=== PATIENT | female | born 1995 | race Caucasian/White ===

== ENCOUNTER → 2017-01-12 | Outpatient (CLI) | payer BC ==
[2016-12-01 09:46] VITALS: BP 111/80
[~2017-01-12] MED LIST: ACET-704 PO; ASPI325T11 PO; CYCL10TA2 PO; HYDR-971 PO; ONDA4TAB10 PO; WARF1TAB PO; WARF7.5T PO
--- NOTE | 2017-01-12 15:48 | RAD ---
Indication right lower quadrant pain for 2 days. Upright and supine films of the abdomen were obtained. The lung bases appear clear. The abdominal gas pattern is normal. Umbilical ornament is noted. IUD is additionally noted. There is no free air IMPRESSION: No acute or significant finding seen on plain films of the abdomen
== END | disposition home or self-care (01) ==
LOC: DXRADRC 15:29
PROVIDERS: ATTEND Physician Assistant
DX: R10.31 Right lower quadrant pain (principal)
CPT/HCPCS: 74020

== ENCOUNTER 2017-02-10 19:57 | Emergency (ER) | payer BC ==
[~2017-02-10] VITALS: Ht 162.6 cm; Wt 95.7 kg
[2017-02-10] MEDS ORDERED: PREDNISONE 20 MG TABLET ONE (20:38)
[2017-02-10] MEDS ORDERED: PREDNISONE 10 MG TABLET ONE (20:41)
[2017-02-10] MEDS ORDERED: ALBUTEROL SULFATE 2.5 MG/0.5 ML NEBU. NEB ONE (21:00)
[2017-02-10] MEDS ORDERED: PREDNISONE 10 MG TABLET PO ONE (21:00)
--- NOTE | 2017-02-10 21:04 | PHYS DOC ---
Text Text Final impression prior to discharge his bronchitis during the patient is not short of breath patient has no leg pain at this time considered pulmonary plasma as cause of wheezing which would doubtful given her episodic nature of her symptoms. Likely associated with her smoking as well as her URI symptoms. We 'll treat with azithromycin, albuterol, prednisone and follow-up. General Chief Complaint: SHORTNESS OF BREATH Stated Complaint: DIFFICULTY BREATHING Time Seen by MD: 20:20 Source: patient Exam Limitations: no limitations Problems: History of Present Illness Initial Comments Patient is a pleasant 21-year-old female with a history of asthma not in any therapy to include no albuterol, no steroids, ipratropium who's had a 2 day history of increasing nonproductive cough, without fevers recent travel antimicrobials. 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 She is also a smoker who smokes half a pack a day. Timing/Duration: yesterday Severity/Quality: moderate, dry cough Prior Episodes/Possible Cause: occasional episodes Modifying Factors: improves with activity Associated Symptoms: cough, nasal congestion, sore throat, wheezing Allergies: Coded Allergies: No Known Drug Allergies (Unverified , 10/19/15) Past Medical History Medical History: asthma, bronchitis Surgical History: noncontributory, other Family History Significant Family History: other (history of DVT) Social History Smoker: less than 1 pack/day Alcohol: none Drugs: none Review of Systems Constitutional: chillsdenies fever EENTM: denies tearing, denies ear discharge, denies nose pain, nose congestion throat paindenies throat swelling Respiratory: coughdenies shortness of breath, denies stridor, wheezing Cardiovascular: no symptoms reported Gastrointestinal: no symptoms reported Genitourinary: no symptoms reported Musculoskeletal: no symptoms reported Skin: no symptoms reporteddenies rash Psychiatric/Neurological: no symptoms reported Hematologic/Lymphatic: no symptoms reported Immunological/Allergic: no symptoms reported All Other Systems: Reviewed and Negative Physical Exam General Appearance: WD/WN, no apparent distress Ears, Nose, Throat: normal ENT inspection, hearing grossly normal, nasal congestion, nasal drainage, pharyngeal erythema Neck: non-tender, full range of motion, supple, normal inspection Respiratory: no respiratory distress, no accessory muscle use, wheezing Cardiovascular: normal peripheral pulses, regular rate, rhythm Gastrointestinal: normal bowel sounds, non tender, soft Extremities: normal range of motion, non-tender, normal inspection Skin: normal color, warm/dry Lymphatic: no adenopathy Orders, Labs, Meds Patient is a pleasant 21-year-old female who is a smoker with a history of DVT presents with wheezing and productive cough for last several days. She admits she's been around sick contacts with similar symptoms she is minimally wheezing at this time or given a dose of albuterol as well as prednisone reevaluation. She will be evaluated for possible and then a chest x-ray be completed. Patient's strep test was negative patient's test is negative chest x-ray dated 02/10/2017 time 2036 negative for pulmonary infiltrates. His cardiac shadow is within normal limits mediastinum is within normal limits trachea is midline patient will be treated with a course of azithromycin treated as a bronchitis with albuterol as well as a short course of prednisone. Patient will be followed up with her primary care doctor for continued evaluation of her asthma will encourage her to quit smoking precautions given see discharge instructions. DARCI ALLEN MD Feb 10, 2017 21:04
[2017-02-10 21:20] LABS: U PREG PATIENT NEGATIVE (NEG)
[2017-02-10] MEDS ORDERED: ALBU8.5H3 INH (21:33)
[2017-02-10] MEDS ORDERED: AZIT250T6 PO (21:33)
[2017-02-10] MEDS ORDERED: PRED50TA PO (21:33)
[2017-02-10 22:10] VITALS: BP 118/69
[2017-02-10] MEDS ORDERED: ALBUTEROL SULFATE 8GM INHALER. INH ONE (22:15)
--- NOTE | 2017-02-11 07:50 | RAD ---
Exam: PA and lateral chest radiograph History: Cough, asthma. Comparison: 06/24/2015. Findings: Cardiomediastinal silhouette is within normal limits for size. Bilateral lung campo are free of focal infiltrate. No pleural effusion is seen. Impression: No acute cardiopulmonary process.
== END 2017-02-10 22:14 | disposition home or self-care (01) ==
LOC: ER 19:57
DX: J40 Bronchitis, not specified as acute or chronic (principal); F17.210 Nicotine dependence, cigarettes, uncomplicated; J45.909 Unspecified asthma, uncomplicated
CPT/HCPCS: 71020; 81025; 87070; 87880; 94640; 99285; J7512; J7611; J7613

== ENCOUNTER 2017-04-28 12:25 | Emergency (ER) | payer BC ==
[~2017-04-28] VITALS: Ht 162.6 cm; Wt 96.0 kg
[~2017-04-28 12:25] MED LIST changes: +ALBU8.5H8 INH; +AZIT250T6 PO; +CYCL-331 PO; -CYCL10TA2 PO; +PRED50TA PO; -WARF1TAB PO; +WARF1TAB74 PO; -WARF7.5T PO; +WARF7.5T48 PO
--- NOTE | 2017-04-28 13:38 | RAD ---
Pelvis with left hip, 3 views, 04/28/2017: History: Fall, left hip pain No fracture or dislocation is identified. The hip joints are well-maintained. An IUD is projected over the mid pelvis. IMPRESSION: No acute pelvic or left hip abnormality is detected.
[2017-04-28] MEDS ORDERED: IBUP600T16 PO (13:42)
[2017-04-28] MEDS ORDERED: CYCL-331 PO (13:42)
--- NOTE | 2017-04-28 13:42 | PHYS DOC ---
Past History Past Medical History: Other Past Surgical History: No Surgical History Smoking: Less than 1pk/day Alcohol Use: Occasionally Drug Use: None Adult General Chief Complaint Chief Complaint: LOWER EXT PAIN HPI HPI Patient is a 21 year old female who presents with complaint of left hip and thigh pain. Patient states that she suffered a fall down 2-3 steps after the patient accidentally slipped while walking down the steps. Patient states that she tried to catch the rail with her hand. This caused the patient to spin around and fall onto her left hip and thigh. Patient states that she is currently having 10 out of 10 pain in the affected extremity. Patient states the pain radiates along the lateral aspect of her left leg. The patient was able to ambulate immediately after the fall and has been walking but has been having significant pain that is focused in the left hip. Patient states that the pain worsens with range of motion. Patient has not taken any medications to help with symptoms. Patient did not hit her head or lose consciousness and denies any other injuries. Patient states that she has had history of DVT and was previously on Coumadin but has been off of this medication for several months. Review of Systems Review of Systems Constitutional: Denies fever or chills [] Musculoskeletal: Left hip and thigh pain [] Integument: Denies rash or skin lesions [] Neurologic: Denies headache, focal weakness or sensory changes [] Current Medications Current Medications Current Medications Medications (Trade) Dose Ordered Sig/[facility] Start Time Stop Time Status Last Admin Dose Admin Ibuprofen (Motrin) 600 mg 1X ONCE 04/28/17 14:00 04/28/17 14:01 DC 04/28/17 13:55 600 MG Allergies Allergies Allergies Coded Allergies Type Severity Reaction Last Updated Verified No Known Drug Allergies 10/19/15 No Physical Exam Physical Exam Constitutional: Alert, afebrile, appears in mild to moderate discomfort. [] HENT: Normocephalic, atraumatic, bilateral external ears normal, oropharynx moist, no oral exudates, nose normal. [] Skin: Warm, dry, no erythema, no rash. [] Back: No tenderness, no CVA tenderness. [] Extremities: Left greater trochanteric tenderness to palpation, tenderness to palpation along left IT band, left knee with no palpable crepitus with passive range of motion, negative Na test, neurovascularly intact distal to site of injury. [] Neurologic: Alert and oriented X 3, normal motor function, normal sensory function, no focal deficits noted. [] Current Patient Data Vital Signs Vital Signs Date Time Temp Pulse Resp B/P (MAP) Pulse Ox O2 Delivery O2 Flow Rate FiO2 04/28/17 12:33 97.7 115 20 98 Room Air EKG EKG Not performed [] Radiology/Procedures Radiology/[place] [address] IMAGING REPORT Signed PATIENT: MORENITA PARSON ACCOUNT: [id number] : 1995 LOCATION: ER AGE: 21 SEX: F EXAM STATUS: REG ER ORD. PHYSICIAN: AILYN GUTIERREZ MD REASON: FALL PROCEDURE: HIP LEFT 2V WITH PELVIS Pelvis with left hip, 3 views, 04/28/2017: History: Fall, left hip pain No fracture or dislocation is identified. The hip joints are well-maintained. An IUD is projected over the mid pelvis. IMPRESSION: No acute pelvic or left hip abnormality is detected. DICTATED AND SIGNED BY: ISRRAEL HARTMAN MD DATE: 04/28/17 1334 CC: AILYN GUTIERREZ MD; JOHN PAUL BALL ~ [] Course & Med Decision Making Course & Med Decision Making Pertinent Labs and Imaging studies reviewed. (See chart for details) X-rays were negative for fracture. Patient's symptoms appear consistent with left hip and thigh contusion. Patient started on ibuprofen in the emergency department. The patient will continue on cyclobenzaprine and ibuprofen for continued treatment with recommended follow-up in 3 days with patient's primary physician. Advised return emergency department for any worsening symptoms. Patient voiced understanding and in agreement with treatment plan. Dragon Disclaimer Dragon Disclaimer This chart was dictated in whole or in part using Voice Recognition software in a busy, high-work load, and often noisy Emergency Department environment. It may contain unintended and wholly unrecognized errors or omissions. Departure Departure: Impression: Primary Impression: Contusion of left hip and thigh Disposition: HOME, SELF-CARE Condition: IMPROVED Referrals: JOHN PAUL BALL (PCP) Patient Instructions: Contusion Additional Instructions: Follow-up with your primary doctor in the next 3 days for reevaluation and to discuss possible need for restarting your Coumadin medication. Return to the emergency department for any worsening symptoms. Scripts Ibuprofen (IBUPROFEN) 600 Mg Tablet 600 MG PO Q6HRS, #30 TAB Prov: AILYN GUTIERREZ MD 04/28/17 Cyclobenzaprine Hcl (CYCLOBENZAPRINE HCL) 10 Mg Tablet 1 TAB PO QHS, #15 TAB Prov: AILYN GUTIERREZ MD 04/28/17 Problem Qualifiers Primary Impression: Contusion of left hip and thigh Encounter type: initial encounter Qualified Codes: S70.02XA - Contusion of left hip, initial encounter; S70.12XA - Contusion of left thigh, initial encounter AILYN GUTIERREZ MD Apr 28, 2017 13:42
[2017-04-28 14:00] VITALS: BP 127/73
[2017-04-28] MEDS ORDERED: IBUPROFEN 600 MG TABLET. PO ONE (14:00)
== END 2017-04-28 13:58 | disposition home or self-care (01) ==
LOC: ER 12:25
DX: S70.02XA Contusion of left hip, initial encounter (principal); S70.12XA Contusion of left thigh, initial encounter; F17.200 Nicotine dependence, unspecified, uncomplicated; W01.10XA Fall on same level from slipping, tripping and stumbling with subsequent striking against unspecified object, initial encounter; Y93.89 Activity, other specified; Y92.89 Other specified places as the place of occurrence of the external cause; Y99.8 Other external cause status
CPT/HCPCS: 73502; 99284

== ENCOUNTER 2017-05-26 12:58 | Emergency (ER) | payer BC ==
[~2017-05-26] VITALS: Ht 162.6 cm; Wt 96.0 kg
[~2017-05-26 12:58] MED LIST changes: +IBUP600T16 PO
--- NOTE | 2017-05-26 14:43 | RAD ---
Right lower extremity venous duplex study 05/26/2017 Clinical History: Right leg pain and swelling.. Technique: Using a combination of real time ultrasound imaging and color-flow and pulse Doppler imaging techniques along with graded compression and augmentation, duplex evaluation of the deep venous system of the right lower extremity was performed. Multiple images were obtained. Findings: There is no sonographic evidence of deep venous thrombosis involving the visualized deep venous structures of right lower extremity. Impression: Negative study.
[2017-05-26] MEDS ORDERED: ACET325T9 PO (14:47)
--- NOTE | 2017-05-26 14:47 | PHYS DOC ---
Past History Past Medical History: Other Past Surgical History: No Surgical History Smoking: Less than 1pk/day Alcohol Use: Occasionally Drug Use: None Adult General Chief Complaint Chief Complaint: LOWER EXT PAIN HPI HPI 21-year-old female presenting to the emergency department today with pain in her right lower extremity. She reports having history of DVTs and was sent here to be evaluated to make sure she doesn't of blood clot. The pain is in her right calf. It is nonradiating moderate intermittent and without alleviating factors. She denies unilateral leg swelling and redness of the leg. Review of systems is negative for chest pain shortness of breath abdominal pain nausea vomiting. All other review of systems is negative unless otherwise noted in history of present illness. ED course: 21-year-old female presenting to the emergency department today to be evaluated for right calf pain concern for possible DVT. Ultrasound obtained which was negative. The patient was subsequent discharged home to follow-up with her doctor. The patient was then discharged home in stable condition to follow up with their primary care physician over the next 2-3 days. They were to return if their symptoms worsened or if they were concerned for any reason. [id number] discharge instructions and return precautions were given. Patient' s questions were answered to their satisfaction. Patient is comfortable plan. Review of Systems Review of Systems SEE ABOVE Allergies Allergies Allergies Coded Allergies Type Severity Reaction Last Updated Verified No Known Drug Allergies 10/19/15 No Physical Exam Physical Exam Constitutional: Well developed, well nourished, no acute distress, non-toxic appearance. [] HENT: Normocephalic, atraumatic, bilateral external ears normal, oropharynx moist, no oral exudates, nose normal. [] Eyes: PERRLA, EOMI, conjunctiva normal, no discharge. [] Neck: Normal range of motion, no tenderness, supple, no stridor. [] Cardiovascular:Heart rate regular rhythm, no murmur [] Lungs & Thorax: Bilateral breath sounds clear to auscultation [] Abdomen: Bowel sounds normal, soft, no tenderness, no masses, no pulsatile masses. [] Skin: Warm, dry, no erythema, no rash. [] Back: No tenderness, no CVA tenderness. [] Extremities: Patient has mild tenderness to palpation along the posterior calf muscle. No swelling. No erythema. 2 second cap refill distally with palpable pulse. Neurovascularly intact. No evidence of trauma. The remainder of the extremities otherwise are unremarkable. Neurologic: Alert and oriented X 3, normal motor function, normal sensory function, no focal deficits noted. [] Psychologic: Affect normal, judgement normal, mood normal. [] Current Patient Data Vital Signs Vital Signs Date Time Temp Pulse Resp B/P (MAP) Pulse Ox O2 Delivery O2 Flow Rate FiO2 05/26/17 13:08 97.4 92 20 96 Room Air EKG EKG [] Radiology/Procedures Radiology/Procedures [] Course & Med Decision Making Course & Med Decision Making Pertinent Labs and Imaging studies reviewed. (See chart for details) [] Dragon Disclaimer Dragon Disclaimer This chart was dictated in whole or in part using Voice Recognition software in a busy, high-work load, and often noisy Emergency Department environment. It may contain unintended and wholly unrecognized errors or omissions. Departure Departure: Impression: Primary Impression: Right leg pain Disposition: HOME, SELF-CARE Condition: STABLE Referrals: JOHN PAUL BALL (PCP) Patient Instructions: Musculoskeletal Pain Additional Instructions: Thank you for allowing us to participate in your care today. No DVT was found today on your ultrasound. Take ibuprofen or Tylenol for pain. Followup with your primary care physician in 3 days if your symptoms do not improve. Call your Primary Doctor tomorrow and inform them of your visit today. If you do not have a primary care provider you can ask for a list of our primary care providers. Return to the emergency department you have any new or concerning findings. This should be evaluated by the primary care physician and any necessary consulting services for continued management within a few days after discharge. Return to emergency room if you have any new or concerning symptoms including but not limited to fever, chills, nausea, vomiting, intractable pain, any new rashes, chest pain, shortness of air, uncontrolled bleeding, difficulty breathing, and/or vision loss. Scripts Acetaminophen (TYLENOL) 325 Mg Tablet 1 TAB PO PRN Q4HRS, #10 TAB Prov: WILLIAM STEARNS MD 05/26/17 WILLIAM STEARNS MD May 26, 2017 14:47
[2017-05-26 15:06] VITALS: BP 127/63
== END 2017-05-26 15:06 | disposition home or self-care (01) ==
LOC: ER 12:58
DX: M79.661 Pain in right lower leg (principal); F17.200 Nicotine dependence, unspecified, uncomplicated
CPT/HCPCS: 93971; 99284-25

== ENCOUNTER → 2017-07-17 | Emergency (ER) | payer BC ==
[~2017-07-17] VITALS: Ht 162.6 cm; Wt 95.3 kg
[~2017-07-17] MED LIST changes: +0.9 % SODIUM CHLORIDE 10 ML DISP.SYRIN. IV PRN; +ACET325T9 PO; +HYDR-2758 PO; +IOHEXOL 300 MG/ML 75 ML VIAL. IV ONE; +IV NORMAL SALINE 1,000ML 1,000 ML IV SCH; +KETOROLAC 30 MG/ML VIAL. IV ONE; +NAPR275T59 PO
--- NOTE | 2017-07-17 11:56 | PHYS DOC ---
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 Patient's been on and off Coumadin in the past and now just recently changed to XALETO but during this interval transition she developed left-sided chest pain constant with left arm pain. The left arm pain is what's causing most of her consternation as she's had this pain for a week it is worse with range of motion movements specifically on the inside of the bicep and elbow. She was seen by her primary care doctor who told her it is likely musculoskeletal and prescribed a muscle relaxant and Motrin. She is not improved in her symptoms. After talking to her data center technician earlier this morning he advised her to return to the emergency department immediately for evaluation. Patient denies any numbness and tingling to the hand at this point but has had some in the past few days. There is intermittent called waxing and waning. She denies any neck pain and she has left shoulder pain with pain radiation down to the inner portion of the arm. She denies any direct trauma, denies any night sweats, weight loss, shortness of breath at this time. The chest discomfort is constant in the left chest with no radiation. She denies any nausea, vomiting, diarrhea, night sweats, fever, URI symptoms. Patient is taking her medications routinely and is presently on Mirena for control. Differential diagnosis for chest pain: Pericarditis, myocarditis, endocarditis, pneumothorax, pneumonia, aortic dissection, esophageal spasm, esophagitis, peptic ulcer disease, acute coronary syndrome, mediastinitis, Boerhaave syndrome , musculoskeletal chest wall pain, costochondritis, intercostal strain, rib fracture, pulmonary contusion, pneumonitis, pleural effusion, pericardial effusion, pericardial tamponode, and pleurisy. Considered upon arrival in like main concern is likely pulmonary embolism from the hyper coagulable states she was in transiently while changing between medications. Review of Systems Review of Systems Constitutional: Denies fever or chills [] Eyes: Denies change in visual acuity, redness, or eye pain [] HENT: Denies nasal congestion or sore throat [] Respiratory: Denies cough or shortness of breath [] Cardiovascular: No additional information not addressed in HPI [] GI: Denies abdominal pain, nausea, vomiting, bloody stools or diarrhea [] : Denies dysuria or hematuria [] Musculoskeletal: Denies back pain or her main complaint is left shoulder pain left chest pain and left arm pain. Described as a dull ache worsened by certain movements and positions Integument: Denies rash or skin lesions [] Neurologic: Denies headache, focal weakness or sensory changes [] Endocrine: Denies polyuria or polydipsia [] Allergies Allergies Allergies Coded Allergies Type Severity Reaction Last Updated Verified No Known Drug Allergies 10/19/15 No Physical Exam Physical Exam Constitutional: Well developed, well nourished, no acute distress, non-toxic appearance. [] HENT: Normocephalic, atraumatic, bilateral external ears normal, oropharynx moist, no oral exudates, nose normal. [] Eyes: PERRLA, EOMI, conjunctiva normal, no discharge. [] Neck: Normal range of motion, no tenderness, supple, no stridor. [] Cardiovascular:Heart rate regular rhythm, no murmur [] Lungs & Thorax: Bilateral breath sounds clear to auscultation [] Skin: Warm, dry, no erythema, no rash. [] Back: Patient is tenderness to palpation along the superior portion of the scapula and a sits muscles on the left. There is also marked tenderness to palpation on the inside of the bicep with no obvious changes in skin color no loss of sensation to light touch. Patient has normal capillary refill brisk +2 normal peripheral pulses at the ulnar and radial artery with no evidence of vascular congestion. Patient has no rash, no loss of strength within the physical muscles of the hand she has negative Spurling's test no tenderness to palpation along the left side of the neck or midline cervical spine. Extremities: No tenderness, no cyanosis, no clubbing, ROM intact, no edema. [] Neurologic: Alert and oriented X 3, normal motor function, normal sensory function, no focal deficits noted. [] Psychologic: Affect normal, judgement normal, mood normal. [] Current Patient Data Lab Results Laboratory Tests Test 07/17/17 12:46 POC Urine HCG, Qualitative hcg negative (Negative) EKG EKG [] Radiology/Procedures Radiology/Procedures [] [address] [address] IMAGING REPORT Signed PATIENT: MORENITA PARSON ACCOUNT: [id number] : 1995 LOCATION: ER AGE: 22 SEX: F EXAM STATUS: REG ER ORD. PHYSICIAN: DARCI ALLEN MD REASON: chest pain off of coumadin PROCEDURE: CT ANGIOGRAPHY CHEST One or more of the following individualized dose reduction techniques were utilized for this examination: 1. Automated exposure control 2. Adjustment of the mA and/or kV according to patient size 3. Use of iterative reconstruction technique CT arteriogram of the chest. History: Chest pain, off Coumadin, history lower extremity DVT CT arteriogram of the chest was done using 75 mL Omnipaque 300 contrast. Sagittal and coronal MIP images were reconstructed. Thyroid is homogeneous. There is no mediastinal adenopathy or pleural effusion. Visualized portions of liver and spleen are normal. Adrenal glands are normal. Thoracic spine is in normal alignment. Study is negative for evidence of a pulmonary embolus. There is mild dependent atelectasis in the lungs without other infiltrates. Impression: 1. Mild atelectasis. 2. Negative for a pulmonary embolus. 3. No other infiltrates. DICTATED AND SIGNED BY: KATHRINE MOBLEY MD DATE: 07/17/17 1320 Course & Med Decision Making Course & Med Decision Making Pertinent Labs and Imaging studies reviewed. (See chart for details) patient presents with chest painDifferential diagnosis for chest pain: Pericarditis, myocarditis, endocarditis, pneumothorax, pneumonia, aortic dissection, esophageal spasm, esophagitis, peptic ulcer disease, acute coronary syndrome, mediastinitis, Boerhaave syndrome, musculoskeletal chest wall pain, costochondritis, intercostal strain, rib fracture, pulmonary contusion, pneumonitis, pleural effusion, pericardial effusion, pericardial tamponode, and pleurisy. Was considered upon arrival but given her prior history of DVT requiring anticoagulant therapy with Coumadin and now xaleto my concern is that during the transition period between the 2 medications patient is developed a clot within her lungs. Although she demonstrates no obvious signs of vascular, to the upper extremity she's had no risk factors for DVT in left upper extremity like IV line placement, localized trauma, PICC line placement, or limitation patient has brisk capillary refills as well as normal sensation to light touch and proprioception. Patient has no obvious provocative signs of cervical spine impingement or radiculopathy Patient's CT scan returned at approximately 1:30 PM demonstrates no signs of atelectasis, pulmonary infiltrate or PE. Patient's laboratory work is negative for signs of infection with a normal CBC normal white blood cell count normal pleuritic count. Patient seated CMP is normal patient's troponin is normal patient's BNP is normal sensation to EKG is unremarkable read by me time on EKG was 11:59 AM 07/17/2017 demonstrates heart rate of 76 with a pediatric QRS normal sinus rhythm with marked sinus arrhythmia given. UT interval is 118 which is normal patient's QRS width is 70 which is normal. QT C is 418 which is normal. Patient not likely have a cardiac cause of her arm pain and sharp pain and chest pain. This is likely musculoskeletal. Patient's History: Provided gets her a low risk 0 point on the heart score criteria. This allows me to send her home safely with close PCP follow-up. She and I discussed differential diagnosis and follow-up precautions as well as instructions when to return. Highly suspicious 2 points moderately suspicious 1. slightly suspicious 0 point EKG: ST segment depression 2. nonspecific repolarization disturbance 1. normal 0 point Age: Greater than 65 2 points, 65-45 1., less than 45 years old 0 points Risk factors:> 3 risk factors 2 points, 1-2 risk factors one point, no risk factors 0 point Troponin: > 2 times normal 2 points, 1-2 times normal 1., normal limits 0 point Total score: Score % pts MACE/n MACE Policy 0-3 32% 1.9% 0.05% Discharge 4-6 51% 413/3136 13% 1.3% Observation Risk management 7-10 17% 518/1045 50% 2.8% Observation Treatment, CAG [] Dragon Disclaimer Dragon Disclaimer This chart was dictated in whole or in part using Voice Recognition software in a busy, high-work load, and often noisy Emergency Department environment. It may contain unintended and wholly unrecognized errors or omissions. Departure Departure: Impression: Primary Impression: Chest pain made worse by breathing Additional Impression: Myalgia Disposition: HOME, SELF-CARE Condition: STABLE Referrals: JOHN PAUL BALL (PCP) Patient Instructions: Chest Pain (Nonspecific), Chest Wall Pain, Muscle Cramps Additional Instructions: My discharge plan Follow up: In addition patient is asked to followup with their primary doctor, within a week for followup examination and to address patient's ongoing medical conditions. Patient is advised that in the Emergency Department primary complaints are addressed and only in light of known signs and symptoms. Patient should return immediately to the emergency department if new signs and symptoms develop or patient's condition worsens in any way. At time of discharge patient was in stable condition and had verbalized understanding of the discharge instructions. Scripts Naproxen Sodium (NAPROXEN SODIUM) 275 Mg Tablet 275 MG PO BID for 7 Days, #14 TAB Prov: DARCI ALLEN MD 07/17/17 Hydrocodone Bit/Acetaminophen (HYDROCODONE-APAP 5-325 ) 1 Each Tablet 1 TAB PO PRN Q6HRS Y for PAIN for 5 Days, #10 TAB 0 Refills Prov: DARCI ALLEN MD 07/17/17 Problem Qualifiers DARCI ALLEN MD Jul 17, 2017 11:56
[2017-07-17 12:49] LABS: BASO # 0.1 x10^3/uL (0.0-0.2); BASO % 1 % (0-3); EOS # 0.2 x10^3/uL (0.0-0.7); EOS % 2 % (0-3); HEMATOCRIT 46.2 % (36.0-47.0); HEMOGLOBIN 16.4 g/dL (12.0-15.5); LYMPH # 1.9 x10^3/uL (1.0-4.8); LYMPH % 19 % (24-48); MEAN CORPUSCULAR HEMOGLOBIN 32 pg (25-35); MEAN CORPUSCULAR HGB CONC 36 g/dL (31-37); MEAN CORPUSCULAR VOLUME 90 fL (79-100); MONO # 0.7 x10^3/uL (0.0-1.1); MONO % 7 % (0-9); NEUT % 71 % (31-73); PLATELET COUNT 244 x10^3/uL (140-400); RED BLOOD COUNT 5.13 x10^6/uL (3.50-5.40); RED CELL DISTRIBUTION WIDTH 12.8 % (11.5-14.5); WHITE BLOOD COUNT 9.8 x10^3/uL (4.0-11.0)
[2017-07-17 12:58] LABS: BILIRUBIN,URINE NEG (NEG); CLARITY,URINE HAZY; COLOR,URINE YELLOW; GLUCOSE,URINE NEG (NEG)
[2017-07-17 12:59] LABS: BACTERIA,URINE FEW /HPF (0-FEW); NITRITE,URINE NEG (NEG); SQUAMOUS EPITHELIAL CELL,UR MOD /LPF; UROBILINOGEN,URINE 0.2 mg/dL (0.2 mg/dL)
[2017-07-17 13:08] LABS: ALBUMIN 3.9 g/dL (3.4-5.0); ALBUMIN/GLOBULIN RATIO 1.1 (1.0-1.7); ALK PHOS 110 U/L (46-116); ALT (SGPT) 30 U/L (14-59); ANION GAP 6 (6-14); AST (SGOT) 17 U/L (15-37); BLOOD UREA NITROGEN 9 mg/dL (7-20); BUN/CREATININE RATIO 10 (6-20); CALCIUM 9.7 mg/dL (8.5-10.1); CARBON DIOXIDE 29 mmol/L (21-32); CHLORIDE 107 mmol/L (98-107); CREATINE KINASE 70 U/L (26-192); CREATININE 0.9 mg/dL (0.6-1.0); GFR 78.3; GLUCOSE 96 mg/dL (70-99); LIPASE 111 U/L (73-393); MAGNESIUM 1.9 mg/dL (1.8-2.4); POTASSIUM 3.6 mmol/L (3.5-5.1); SODIUM 142 mmol/L (136-145); TOTAL BILIRUBIN 0.3 mg/dL (0.2-1.0); TOTAL PROTEIN 7.6 g/dL (6.4-8.2)
--- NOTE | 2017-07-17 13:32 | RAD ---
One or more of the following individualized dose reduction techniques were utilized for this examination: 1. Automated exposure control 2. Adjustment of the mA and/or kV according to patient size 3. Use of iterative reconstruction technique CT arteriogram of the chest. History: Chest pain, off Coumadin, history lower extremity DVT CT arteriogram of the chest was done using 75 mL Omnipaque 300 contrast. Sagittal and coronal MIP images were reconstructed. Thyroid is homogeneous. There is no mediastinal adenopathy or pleural effusion. Visualized portions of liver and spleen are normal. Adrenal glands are normal. Thoracic spine is in normal alignment. Study is negative for evidence of a pulmonary embolus. There is mild dependent atelectasis in the lungs without other infiltrates. Impression: 1. Mild atelectasis. 2. Negative for a pulmonary embolus. 3. No other infiltrates.
[2017-07-17 13:55] VITALS: BP 118/74
--- NOTE | 2017-07-17 15:23 | EKG ---
[address] [address] Test Date: 2017-07-17 Test Time: 11:59:04 Pat Name: MORENITA PARSON Department: Room: Gender: F Applications System Analyst: : 1995 Requested By: DARCI ALLEN Order Number: [id number] Reading MD: Measurements Intervals [place] Rate: 76 P: 38 [place]: 118 QRS: 0 QRSD: 70 T: 0 QT: 372 QTc: 418 Interpretive Statements SINUS ARRHYTHMIA LEFTWARD AXIS NO SPECIFIC ECG ABNORMALITIES RI6.01 No previous ECG available for comparison
== END ==
LOC: ER 11:36
DX: M79.1 Myalgia (principal); R07.1 Chest pain on breathing; M79.602 Pain in left arm; F17.210 Nicotine dependence, cigarettes, uncomplicated; Z86.718 Personal history of other venous thrombosis and embolism
CPT/HCPCS: 36415; 71275; 80053; 81001; 81025; 82553; 83690; 83735; 83880; 84443; 85025; 85610; 85730; 87086; 93005; 96361; 96374; 99285; J1885; Q9967; J7030

== ENCOUNTER 2018-01-09 20:43 | Emergency (ER) | payer BC ==
[~2018-01-09] VITALS: Ht 162.6 cm; Wt 96.0 kg
[~2018-01-09 20:43] MED LIST changes: -0.9 % SODIUM CHLORIDE 10 ML DISP.SYRIN. IV PRN; -IOHEXOL 300 MG/ML 75 ML VIAL. IV ONE; -IV NORMAL SALINE 1,000ML 1,000 ML IV SCH; -KETOROLAC 30 MG/ML VIAL. IV ONE
--- NOTE | 2018-01-09 20:45 | ED.ADGEN ---
Past History Past Medical History: Other Past Surgical History: Other Smoking: Less than 1pk/day Alcohol Use: Occasionally Drug Use: None Adult General Chief Complaint Chief Complaint " I got a really bad sore throat and some fever and chills...can't hardly swallow..." HPI HPI Patient is a 22 year old female who presents with above hx and complaints of fever, chills and pharyngitis. Patient does work in a [employer]. No recent travel. No history immunosuppression. Normally healthy. Up-to-date with vaccinations. Normally follows with Dr. Jhaveri Review of Systems Review of Systems Constitutional: History fever or chills [] Eyes: Denies change in visual acuity, redness, or eye pain [] HENT: History of sore throat [] Respiratory: History of a nonproductive cough Cardiovascular: No additional information not addressed in HPI [] GI: Denies abdominal pain, nausea, vomiting, bloody stools or diarrhea [] : Denies dysuria or hematuria [] Musculoskeletal: Denies back pain or joint pain [] Integument: Denies rash or skin lesions [] Neurologic: Denies headache, focal weakness or sensory changes [] Endocrine: Denies polyuria or polydipsia [] All other systems were reviewed and found to be within normal limits, except as documented in this note. Family History Family History Noncontributory Current Medications Current Medications Current Medications Medications (Trade) Dose Ordered Sig/Shawn Start Time Stop Time Status Last Admin Dose Admin Prednisone (Prednisone) 60 mg 1X ONCE 01/09/18 21:15 01/09/18 21:16 DC 01/09/18 21:21 60 MG Allergies Allergies Allergies Coded Allergies Type Severity Reaction Last Updated Verified No Known Drug Allergies 07/17/17 No Physical Exam Physical Exam Constitutional: Well developed, well nourished, moderately acute distress, non- toxic appearance. [] HENT: Normocephalic, atraumatic, bilateral external ears normal, oropharynx moist, injected pharynx, no oral exudates, nose normal. [] Eyes: PERRLA, EOMI, conjunctiva normal, no discharge. [] Neck: Normal range of motion, no tenderness, supple, no stridor. [] Cardiovascular:Heart rate regular rhythm, no murmur [] Lungs & Thorax: Bilateral breath sounds clear to auscultation [] Abdomen: Bowel sounds normal, soft, no tenderness, no masses, no pulsatile masses. [] Skin: Warm, dry, no erythema, no rash. [] Back: No tenderness, no CVA tenderness. [] Extremities: No tenderness, no cyanosis, no clubbing, ROM intact, no edema. [] Neurologic: Alert and oriented X 3, normal motor function, normal sensory function, no focal deficits noted. [] Psychologic: Affect anxious, judgement normal, mood normal. [] Current Patient Data Vital Signs Vital Signs Date Time Temp Pulse Resp B/P (MAP) Pulse Ox O2 Delivery O2 Flow Rate FiO2 01/09/18 21:22 99.0 99 18 98 Room Air Lab Results Laboratory Tests Test 01/09/18 21:22 Influenza Type A (Rapid) Negative (NEGATIVE) Influenza Type B (Rapid) Negative (NEGATIVE) Group A Streptococcus Rapid Negative (NEGATIVE) EKG EKG [] Radiology/Procedures Radiology/Procedures [] Course & Med Decision Making Course & Med Decision Making Pertinent Labs and Imaging studies reviewed. (See chart for details).. No work in [employer] until afebrile. Tylenol and ibuprofen for fever and discomfort. Benadryl may be helpful. Gargle with Listerine 4 times a day. Follow -up primary care. Return if any concerns. [] Final Impression Final Impression 1. Pharyngitis[] 2. Viral syndrome Problems: Dragon Disclaimer Dragon Disclaimer This electronic medical record was generated, in whole or in part, using a voice recognition dictation system. DARYL OWENS MD Jan 09, 2018 20:45
[2018-01-09] MEDS ORDERED: HYDR-79 PO (20:58)
[2018-01-09] MEDS ORDERED: predniSONE 20 MG TABLET PO ONE (21:15)
[2018-01-09 21:22] VITALS: BP 127/78
[2018-01-09 21:57] LABS: INFLUENZA A PATIENT NEGATIVE (NEGATIVE); INFLUENZA B PATIENT NEGATIVE (NEGATIVE)
== END 2018-01-09 22:15 | disposition home or self-care (01) ==
LOC: ER 20:43
DX: B34.9 Viral infection, unspecified (principal); F17.200 Nicotine dependence, unspecified, uncomplicated
CPT/HCPCS: 87070; 87804; 87880; 99284; J7512

== ENCOUNTER → 2018-01-25 | Outpatient (CLI) | payer BC ==
[2018-01-09 21:22] VITALS: BP 127/78
[~2018-01-25] MED LIST changes: +HYDR-79 PO
--- NOTE | 2018-01-25 12:28 | RAD ---
Right knee, 3 views, 01/25/2018: History: Knee pain Comparison is made to a study from 05/06/2011. There is deformity of the proximal tibia compatible with previous surgery. The previously seen 2 tibial screws have been removed. No acute fracture or dislocation is identified. The knee joint space is well maintained. No significant arthritic change is evident. IMPRESSION: 1. Postsurgical deformity of the proximal tibia. 2. No acute bony abnormality is detected.
== END | disposition home or self-care (01) ==
LOC: PMG 11:21
PROVIDERS: ATTEND Physician Assistant
DX: M21.861 Other specified acquired deformities of right lower leg (principal)
CPT/HCPCS: 73562

== ENCOUNTER 2018-02-10 13:15 | Emergency (ER) | payer BC ==
[~2018-02-10] VITALS: Ht 162.6 cm; Wt 86.4 kg
--- NOTE | 2018-02-10 15:26 | RAD ---
PQRS Compliance Statement: One or more of the following individualized dose reduction techniques were utilized for this examination: 1. Automated exposure control 2. Adjustment of the mA and/or kV according to patient size 3. Use of iterative reconstruction technique CT LOWER EXTREMITY WO RIGHT Clinical Indication: severe right hip pain, nki, necrosis? Comparison: AP pelvis and left hip radiographs April 28, 2017. CT abdomen and pelvis with contrast, October 19, 2015. Technique: Helical CT imaging of the right hip is performed without IV contrast. Findings: No acute fracture or dislocation of the right hip. No deformity of the right femoral head. No joint space narrowing. No acute pelvic bone abnormality. Visualized appendix is normal. IUD in the uterus. Question small right ovary functional cyst. Urinary bladder is normal. No pelvic free fluid. No hip joint effusion. No abnormality of the muscle. IMPRESSION: No acute bone abnormality. Electronically signed by: Dustin Dunne MD (02/10/2018 3:23 PM) [id number]
--- NOTE | 2018-02-10 16:36 | RAD ---
Right lower extremity venous Doppler ultrasound History: rt leg pain hx of DVT in rt leg 2014 pt is on blood thinners and states she will be on it the rest of her life pt started having clot in her leg at 16 Comparison: None. Procedure: Color flow Doppler, Doppler spectral analysis, and 2D images are obtained with and without compression in the area of the common femoral vein, superficial femoral vein - femoral vein junction, main femoral vein (superficial femoral vein) and popliteal vein. Veins of the proximal calf are also imaged. Findings: There is normal color flow, augmentation, and compressibility of all visualized vein segments. No evidence of deep venous thrombus is present. IMPRESSION: No evidence of right lower extremity deep venous thrombosis. Electronically signed by: Dustin Dunne MD (02/10/2018 4:33 PM) [id number]
--- NOTE | 2018-02-10 16:59 | PHYS DOC ---
Past History Past Medical History: DVT, Other Past Surgical History: Other Smoking: Less than 1pk/day Alcohol Use: Occasionally Drug Use: None Adult General Chief Complaint Chief Complaint: LOWER EXTREMITY SWELLING HPI HPI Patient is a 22 year old F who presents with right hip and thigh pain over the past 2 days. Marysol does have a history of DVTs was currently Xarelto. She was advised come to the emergency room to have further evaluation for a clot. She has no other associated symptoms. She has no other exacerbating or relieving factors. Review of Systems Review of Systems Constitutional: Denies fever or chills [] Eyes: Denies change in visual acuity, redness, or eye pain [] HENT: Denies nasal congestion or sore throat [] Respiratory: Denies cough or shortness of breath [] Cardiovascular: No additional information not addressed in HPI [] GI: Denies abdominal pain, nausea, vomiting, bloody stools or diarrhea [] : Denies dysuria or hematuria [] Musculoskeletal: Denies back pain Integument: Denies rash or skin lesions [] Neurologic: Denies headache, focal weakness or sensory changes [] Endocrine: Denies polyuria or polydipsia [] All other systems were reviewed and found to be within normal limits, except as documented in this note. Family History Family History No pertinent family medical history was reported Current Medications Current Medications Current medications reviewed Allergies Allergies Allergies Coded Allergies Type Severity Reaction Last Updated Verified No Known Drug Allergies 07/17/17 No Physical Exam Physical Exam Constitutional: Well developed, well nourished, no acute distress, non-toxic appearance. [] HENT: Normocephalic, atraumatic, Eyes: EOMI, conjunctiva normal, no discharge. [] Neck: Normal range of motion, no tenderness, supple, no stridor. [] Cardiovascular:Heart rate regular rhythm, no murmur [] Lungs & Thorax: Bilateral breath sounds clear to auscultation [] Abdomen: Bowel sounds normal, soft, no tenderness, no masses, no pulsatile masses. [] Skin: Warm, dry, no erythema, no rash. [] Back: No tenderness, no CVA tenderness. [] Extremities: no cyanosis, no clubbing, ROM intact, no edema. [] Generalized mild Tenderness to palpation in the right thigh Neurologic: Alert and oriented X 3, normal motor function, normal sensory function, no focal deficits noted. [] Psychologic: Affect normal, judgement normal, mood normal. [] Current Patient Data Vital Signs Vital Signs Date Time Temp Pulse Resp B/P (MAP) Pulse Ox O2 Delivery O2 Flow Rate FiO2 02/10/18 15:00 77 18 119/85 (96) 99 Room Air 02/10/18 13:15 98.1 EKG EKG [] Radiology/Procedures Radiology/Procedures CT hip - negative for acute disease according to radiology report Ultrasound lower extremity- negative for acute disease according to radiology report Course & Med Decision Making Course & Med Decision Making Pertinent Labs and Imaging studies reviewed. (See chart for details) [] Dragon Disclaimer Dragon Disclaimer This electronic medical record was generated, in whole or in part, using a voice recognition dictation system. Departure Departure: Impression: Primary Impression: Right leg pain Disposition: HOME, SELF-CARE Condition: STABLE Referrals: JOHN PAUL BALL (PCP) Patient Instructions: Leg Cramps Additional Instructions: Marysol was seen in the emergency department for leg pain. No emergency medical condition was found on history or physical exam. She did have normal imaging of her hip and leg. She was advised return to the emergency room if she develops new or worsening symptoms. She was also advised follow-up with her primary care doctor as needed for further management. MELISSA HAWTHORNE MD Feb 10, 2018 16:59
[2018-02-10 17:02] VITALS: BP 109/63
== END 2018-02-10 17:02 | disposition home or self-care (01) ==
LOC: ER 13:15
DX: M79.651 Pain in right thigh (principal); M25.551 Pain in right hip; F17.200 Nicotine dependence, unspecified, uncomplicated; Z86.718 Personal history of other venous thrombosis and embolism
CPT/HCPCS: 73700; 93971; 99284-25

== ENCOUNTER 2018-06-02 22:26 | Emergency (ER) | payer BC ==
[~2018-06-02] VITALS: Ht 162.6 cm; Wt 86.4 kg
[2018-06-02] MEDS ORDERED: SULF1TAB24 PO (23:38)
[2018-06-02 23:40] VITALS: BP 108/61
[2018-06-03] MEDS ORDERED: SMZ/TMP 800/160MG TABLET. PO ONE
--- NOTE | 2018-06-03 01:55 | PHYS DOC ---
Past History Past Medical History: DVT, Other Past Surgical History: Other Smoking: Less than 1pk/day Alcohol Use: Occasionally Drug Use: None Adult General Chief Complaint Chief Complaint: INSECT BITE HPI HPI 22-year-old female presents with concern for cellulitis on the abdomen. The patient states a few hours ago she noticed a sore tender bump the size of a pea on the left upper portion of her abdomen. Over the last several hours the area has grown to a sizable normal and has become more tender. It is painful even when her shirt rubs against it. There has been no discharge. She is concerned it could be infected. She denies having skin infections or abscesses in the past. She denies fever or chills. She has no other complaints. Review of Systems Review of Systems Constitutional: Denies fever or chills [] Eyes: Denies change in visual acuity, redness, or eye pain [] HENT: Denies nasal congestion or sore throat [] Respiratory: Denies cough or shortness of breath [] Cardiovascular: No additional information not addressed in HPI [] GI: Denies abdominal pain, nausea, vomiting, bloody stools or diarrhea [] : Denies dysuria or hematuria [] Musculoskeletal: Denies back pain or joint pain [] Integument: Cellulitis on left side of the abdomen[] Neurologic: Denies headache, focal weakness or sensory changes [] Endocrine: Denies polyuria or polydipsia [] All other systems were reviewed and found to be within normal limits, except as documented in this note. Current Medications Current Medications Current Medications Medications (Trade) Dose Ordered Sig/[facility] Start Time Stop Time Status Last Admin Dose Admin Trimethoprim/ Sulfamethoxazole (Bactrim Ds) 1 tab 1X ONCE 06/03/18 00:00 06/03/18 00:00 DC 06/02/18 23:46 1 TAB Allergies Allergies Allergies Coded Allergies Type Severity Reaction Last Updated Verified No Known Drug Allergies 07/17/17 No Physical Exam Physical Exam Constitutional: Well developed, well nourished, no acute distress, non-toxic appearance. [] HENT: Normocephalic, atraumatic, bilateral external ears normal, oropharynx moist, no oral exudates, nose normal. [] Eyes: PERRLA, EOMI, conjunctiva normal, no discharge. [] Neck: Normal range of motion, no tenderness, supple, no stridor. [] Cardiovascular:Heart rate regular rhythm, no murmur [] Lungs & Thorax: Bilateral breath sounds clear to auscultation [] Abdomen: Bowel sounds normal, soft, no tenderness, no masses, no pulsatile masses. [] Skin: Warm, erythematous area 1/2 cm in diameter on the left upper abdomen. There is inflammatory response, but no palpable area of fluctuation. No discharge.[] Back: No tenderness, no CVA tenderness. [] Extremities: No tenderness, no cyanosis, no clubbing, ROM intact, no edema. [] Neurologic: Alert and oriented X 3, normal motor function, normal sensory function, no focal deficits noted. [] Psychologic: Affect normal, judgement normal, mood normal. [] EKG EKG [] Radiology/Procedures Radiology/Procedures [] Course & Med Decision Making Course & Med Decision Making Pertinent Labs and Imaging studies reviewed. (See chart for details) The patient appears to have cellulitis, but despite the abscess has not formed. I will place the patient on 7 days of Bactrim DS twice a day. We will give her first dose in the ED. The patient's condition worsens in the next 24 hours, she will return to the ED I&D at that time is currently no indication for I&D. [] Dragon Disclaimer Dragon Disclaimer This electronic medical record was generated, in whole or in part, using a voice recognition dictation system. Departure Departure: Impression: Primary Impression: Cellulitis, abdominal wall Disposition: 01 HOME, SELF-CARE Condition: STABLE Patient Instructions: Cellulitis, [id number] Scripts Sulfamethoxazole/Trimethoprim (BACTRIM DS TABLET) 1 Each Tablet 1 TAB PO BID, #14 TAB Prov: PB LOZANO DO 06/02/18 PB LOZANO DO Jun 03, 2018 01:55
== END 2018-06-02 23:46 | disposition home or self-care (01) ==
LOC: ER 22:26
DX: L03.311 Cellulitis of abdominal wall (principal); F17.200 Nicotine dependence, unspecified, uncomplicated; Z86.718 Personal history of other venous thrombosis and embolism
CPT/HCPCS: 99283

== ENCOUNTER 2018-07-22 18:57 | Emergency (ER) | payer OTHER, BC ==
[~2018-07-22] VITALS: Ht 162.6 cm; Wt 88.9 kg
[~2018-07-22 18:57] MED LIST changes: +SULF1TAB24 PO
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
[2018-07-22] MEDS ORDERED: RIVA10TA PO (20:18)
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
[2018-07-22] MEDS ORDERED: CYCL-331 PO (21:29)
[2018-07-22] MEDS ORDERED: HYDR-971 PO (21:29)
[2018-07-22] MEDS ORDERED: CYCLOBENZAPRINE 10 MG TABLET. PO ONE (21:30)
[2018-07-22] MEDS ORDERED: HYDROcodone/APAP 5/325MG 1 TAB TABLET PO ONE (21:30)
[2018-07-22] MEDS ORDERED: NAPROXEN 500 MG TABLET PO ONE (21:30)
[2018-07-22 21:48] VITALS: BP 119/80
== END 2018-07-22 21:48 | disposition home or self-care (01) ==
LOC: ER 18:57
DX: M54.2 Cervicalgia (principal); M25.512 Pain in left shoulder; G89.11 Acute pain due to trauma; V49.9XXA Car occupant (driver) (passenger) injured in unspecified traffic accident, initial encounter; Y93.I9 Activity, other involving external motion; Y92.488 Other paved roadways as the place of occurrence of the external cause; Y99.8 Other external cause status
CPT/HCPCS: 72040; 73030; 99284

== ENCOUNTER → 2018-10-02 | Outpatient (CLI) | payer BC, OTHER ==
[~2018-10-02] MED LIST changes: +HYDR-1179 PO; +HYDR-2155 PO; -HYDR-2758 PO; +HYDR-3165 PO; -HYDR-79 PO; -HYDR-971 PO; +RIVA10TA PO
--- NOTE | 2018-10-03 09:05 | RAD ---
SHOULDER 2+V LEFT History: no known injury, pain all through shoulder. Comparison: July 22, 2018 No evidence of acute fracture. No bone destruction. The glenohumeral joint and acromioclavicular joint appear to be intact. Impression: No acute fracture or dislocation. Electronically signed by: Durga White MD (10/03/2018 9:02 AM) [id number]
== END | disposition home or self-care (01) ==
LOC: PMG 17:48
PROVIDERS: ATTEND Registered Nurse
DX: M25.512 Pain in left shoulder (principal)
CPT/HCPCS: 73030

== ENCOUNTER 2019-01-29 10:47 | Emergency (ER) | payer BC, OTHER ==
[~2019-01-29] VITALS: Ht 162.6 cm; Wt 86.2 kg
[~2019-01-29 10:47] MED LIST changes: +ALBU2.5V8 INH; -ALBU8.5H8 INH
--- NOTE | 2019-01-29 11:07 | PHYS DOC ---
Past History Past Medical History: Asthma, DVT, Other Past Surgical History: Tonsillectomy, Other Smoking: Less than 1pk/day Alcohol Use: Occasionally Drug Use: None Adult General Chief Complaint Chief Complaint: LOWER EXT PAIN HPI HPI 23-year-old female presents with right lower leg swelling and pain. The patient has a history of DVT in this leg after having knee surgery. Her last confirmed DVT was 2 years ago. The patient has been on Xarelto since that time. The patient has missed 3 doses, because she forgot to take it. She now has increased diameter per cab and some discomfort in her calf. She is concerned about DVT. 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 She denies shortness of breath or any other symptoms. Review of Systems Review of Systems Constitutional: Denies fever or chills [] Eyes: Denies change in visual acuity, redness, or eye pain [] HENT: Denies nasal congestion or sore throat [] Respiratory: Denies cough or shortness of breath [] Cardiovascular: No additional information not addressed in HPI [] GI: Denies abdominal pain, nausea, vomiting, bloody stools or diarrhea [] : Denies dysuria or hematuria [] Musculoskeletal: Right lower extremity[] Integument: Denies rash or skin lesions [] Neurologic: Denies headache, focal weakness or sensory changes [] Endocrine: Denies polyuria or polydipsia [] All other systems were reviewed and found to be within normal limits, except as documented in this note. Allergies Allergies Allergies Coded Allergies Type Severity Reaction Last Updated Verified No Known Drug Allergies 07/22/18 No Physical Exam Physical Exam Constitutional: Well developed, well nourished, no acute distress, non-toxic appearance. [] HENT: Normocephalic, atraumatic, bilateral external ears normal, oropharynx moist, no oral exudates, nose normal. [] Eyes: PERRLA, EOMI, conjunctiva normal, no discharge. [] Neck: Normal range of motion, no tenderness, supple, no stridor. [] Cardiovascular:Heart rate regular rhythm, no murmur [] Lungs & Thorax: Bilateral breath sounds clear to auscultation [] Abdomen: Bowel sounds normal, soft, no tenderness, no masses, no pulsatile masses. [] Skin: Warm, dry, no erythema, no rash. [] Back: No tenderness, no CVA tenderness. [] Extremities: No tenderness. Right calf diameter greater than left. [] Neurologic: Alert and oriented X 3, normal motor function, normal sensory function, no focal deficits noted. [] Psychologic: Affect normal, judgement normal, mood normal. [] EKG EKG [] Radiology/Procedures Radiology/Procedures [] Impressions: EXAM: Right lower extremity venous Doppler sonogram. HISTORY: Pain and swelling. TECHNIQUE: Hooper scale and color Doppler sonographic evaluation of the right lower extremity veins with spectral waveform analysis was performed. FINDINGS: There is normal color flow, normal compressibility and there are normal spectral waveforms in the common femoral, superficial femoral, popliteal, posterior tibial and greater saphenous veins. IMPRESSION: No Doppler evidence of lower extremity deep venous thrombosis. Electronically signed by: Lani Mckee MD (01/29/2019 12:38 PM) [facility] DICTATED AND SIGNED BY: LANI MCKEE MD DATE: 01/29/19 0448 CC: PB LOZANO DO; JOHN PAUL BALL ~ Course & Med Decision Making Course & Med Decision Making Pertinent Labs and Imaging studies reviewed. (See chart for details) The patient's ultrasound was negative for DVT. Her symptoms are likely musculoskeletal in nature. I'll advise ibuprofen and/or Tylenol as needed. She is stable for discharge at this time. I also stressed the importance of taking her anticoagulant as prescribed. [] Dragon Disclaimer Dragon Disclaimer This electronic medical record was generated, in whole or in part, using a voice recognition dictation system. Departure Departure: Impression: Primary Impression: Pain in right lower leg Disposition: 01 HOME, SELF-CARE Condition: STABLE Referrals: JOHN PAUL BALL (PCP) PB LOZANO DO Jan 29, 2019 11:07
--- NOTE | 2019-01-29 12:40 | RAD ---
EXAM: Right lower extremity venous Doppler sonogram. HISTORY: Pain and swelling. TECHNIQUE: Hooper scale and color Doppler sonographic evaluation of the right lower extremity veins with spectral waveform analysis was performed. FINDINGS: There is normal color flow, normal compressibility and there are normal spectral waveforms in the common femoral, superficial femoral, popliteal, posterior tibial and greater saphenous veins. IMPRESSION: No Doppler evidence of lower extremity deep venous thrombosis. Electronically signed by: Lani Sargent MD (01/29/2019 12:38 PM) [place] [id number]
[2019-01-29 13:10] VITALS: BP 121/71
== END 2019-01-29 13:13 | disposition home or self-care (01) ==
LOC: ER 10:47
DX: M79.661 Pain in right lower leg (principal); R22.41 Localized swelling, mass and lump, right lower limb; J45.909 Unspecified asthma, uncomplicated; F17.200 Nicotine dependence, unspecified, uncomplicated; Z86.718 Personal history of other venous thrombosis and embolism
CPT/HCPCS: 93971; 99284-25

== ENCOUNTER 2019-06-28 21:55 | Emergency (ER) | payer BC, OTHER ==
[~2019-06-28] VITALS: Ht 162.6 cm; Wt 88.9 kg
[2019-06-28 22:07] VITALS: BP 127/74
--- NOTE | 2019-06-28 22:36 | PHYS DOC ---
Past History Past Medical History: Asthma, DVT, Other Past Surgical History: Tonsillectomy, Other Smoking: Less than 1pk/day Alcohol Use: None Drug Use: None Adult General Chief Complaint Chief Complaint: DIZZY/LIGHT HEADED HPI HPI Patient is a 24-year-old female, who presents to the emergency department for evaluation. She states that she has drank a lot of caffeine today, then drank a red bull drink just before leaving work, and then was driving home from work, when she began experiencing a sensation as if she was going to pass out, along with her heart racing. She states she got home and felt like she was having an anxiety attack, something she has a history of, and felt like she was being smothered and could not breathe. She is feeling mostly better upon arrival to the emergency department, but still has some mild residual anxiety and shortness of breath. She does have some generalized discomfort in her chest. She denies any pleuritic pain, exertional chest pain, numbness, or weakness at this time. She has a history of DVTs, on her right leg, and is currently on Xarelto, with which she has been compliant. There are no alleviating, or exacerbating factors to her symptoms. She denies any new leg pain at this time. Review of Systems Review of Systems Constitutional: Denies fever or chills [] Eyes: Denies change in visual acuity, redness, or eye pain [] HENT: Denies nasal congestion or sore throat [] Respiratory: Denies cough or pleuritic pain[] Cardiovascular: No additional information not addressed in HPI [] GI: Denies abdominal pain, nausea, vomiting, bloody stools or diarrhea [] : Denies dysuria or hematuria [] Musculoskeletal: Denies back pain or joint pain [] Integument: Denies rash or skin lesions [] Neurologic: Denies headache, focal weakness or sensory changes [] Endocrine: Denies polyuria or polydipsia [] Psychiatric: Denies suicidal ideation. All other systems were reviewed and found to be within normal limits, except as documented in this note. Allergies Allergies Allergies Coded Allergies Type Severity Reaction Last Updated Verified No Known Drug Allergies 07/22/18 No Physical Exam Physical Exam PHYSICAL EXAM: CONSTITUTIONAL: Well developed, well nourished HEAD: normocephalic, atraumatic EENT: PERRL, EOMI. Conjunctivae normal color, sclerae non-icteric; moist mucous membranes. NECK: Supple, non-tender; no meningismus. LUNGS: Lungs CTA, breathing even and unlabored. Normal air movement. HEART: Regular rate and rhythm, no murmur CHEST: No deformity; non-tender ABDOMEN: The abdomen is soft, and non-tender, no masses or bruits. EXTREM: Normal ROM; no deformity, no calf tenderness. Normal pulses palpable in all extremities. There is no pedal edema. SKIN: No rash; no diaphoresis NEURO: Alert; normal speech and cognition; CN's grossly intact; strength grossly intact without focal deficit. BACK: No CVA TTP. PSYCHIATRIC: The patient exhibits a moderately anxious affect. Current Patient Data Vital Signs Vital Signs Date Time Temp Pulse Resp B/P (MAP) Pulse Ox O2 Delivery O2 Flow Rate FiO2 06/28/19 22:07 98.3 76 16 97 Room Air EKG EKG Normal sinus rhythm at a rate of 82 beats for minute, left axis deviation, n ormal intervals. There are no acute ischemic ST/T changes.[] Radiology/Procedures Radiology/Procedures [] Course & Med Decision Making Course & Med Decision Making 11:55 PM: The patient's condition remains stable. She is feeling better after administration of Ativan. She is ambulatory without difficulty. I discussed importance of close follow-up, limiting stimulative caffeine intake, and return precautions. Dragon Disclaimer Dragon Disclaimer This electronic medical record was generated, in whole or in part, using a voice recognition dictation system. Departure Departure: Impression: Primary Impression: Anxiety Disposition: 01 HOME, SELF-CARE Condition: STABLE Referrals: JOHN PAUL BALL (PCP) Patient Instructions: Anxiety and Panic Attacks, Dizziness BRYON COOPER MD Jun 28, 2019 22:36
[2019-06-28] MEDS ORDERED: LORazepam 1 MG TABLET PO ONE (22:45)
--- NOTE | 2019-06-29 12:43 | EKG ---
[address] [address] Test Date: 2019-06-28 Test Time: 22:12:38 Pat Name: MORENITA PARSON Department: Room: Gender: F Medical Sales Associate: : 1995 Requested By: BRYON COOPER Order Number: [id number] Reading MD: Measurements Intervals [place] Rate: 82 P: 35 ID: [id number] QRS: -7 QRSD: 72 T: 0 QT: 362 QTc: 426 Interpretive Statements SINUS ARRHYTHMIA LEFTWARD AXIS QRS(T) CONTOUR ABNORMALITY CONSIDER ANTEROLATERAL MYOCARDIAL DAMAGE POSSIBLY ABNORMAL ECG RI6.01 No previous ECG available for comparison
== END 2019-06-29 00:08 | disposition home or self-care (01) ==
LOC: ER 21:55
DX: F41.9 Anxiety disorder, unspecified (principal); J45.909 Unspecified asthma, uncomplicated; F17.200 Nicotine dependence, unspecified, uncomplicated; Z86.718 Personal history of other venous thrombosis and embolism
CPT/HCPCS: 93005; 99284

== ENCOUNTER → 2019-12-07 | Outpatient (CLI) | payer BC ==
--- NOTE | 2019-12-07 17:17 | RAD ---
SHOULDER BILAT 2+V History: Bilateral shoulder pain. Technique: 3 views bilateral shoulders. Comparison: None. Findings: Normal alignment of the glenohumeral and acromioclavicular joints. No fracture. Soft tissues unremarkable. Impression: 1. No acute osseous abnormality. Electronically signed by: Jean Paul Lau DO (12/07/2019 5:14 PM) [id number]
== END | disposition home or self-care (01) ==
LOC: PMG 09:07
PROVIDERS: ATTEND Registered Nurse
DX: M25.511 Pain in right shoulder (principal); M25.512 Pain in left shoulder
CPT/HCPCS: 73030

== ENCOUNTER → 2019-12-07 | Outpatient (CLI) | payer BC ==
[2019-12-07 10:48] LABS: BASO # 0.1 x10^3/uL (0.0-0.2); BASO % 1 % (0-3); EOS # 0.3 x10^3/uL (0.0-0.7); EOS % 2 % (0-3); HEMATOCRIT 46.6 % (36.0-47.0); HEMOGLOBIN 15.8 g/dL (12.0-15.5); LYMPH # 3.9 x10^3/uL (1.0-4.8); LYMPH % 30 % (24-48); MEAN CORPUSCULAR HEMOGLOBIN 31 pg (25-35); MEAN CORPUSCULAR HGB CONC 34 g/dL (31-37); MEAN CORPUSCULAR VOLUME 92 fL (79-100); MONO # 0.9 x10^3/uL (0.0-1.1); MONO % 7 % (0-9); NEUT % 61 % (31-73); PLATELET COUNT 270 x10^3/uL (140-400); RED BLOOD COUNT 5.08 x10^6/uL (3.50-5.40); RED CELL DISTRIBUTION WIDTH 12.5 % (11.5-14.5); WHITE BLOOD COUNT 13.1 x10^3/uL (4.0-11.0)
[2019-12-07 10:53] LABS: CREATININE 0.8 mg/dL (0.6-1.0); GFR 88.1; POTASSIUM 3.6 mmol/L (3.5-5.1)
[2019-12-07 10:59] LABS: ALBUMIN 3.8 g/dL (3.4-5.0); ALBUMIN/GLOBULIN RATIO 1.1 (1.0-1.7); TOTAL BILIRUBIN 0.1 mg/dL (0.2-1.0); TOTAL PROTEIN 7.3 g/dL (6.4-8.2)
[2019-12-07 11:57] LABS: SEDIMENTATION RATE 1 (0-25)
[2019-12-10 16:07] LABS: ANA INTERP Negative (.)
== END | disposition home or self-care (01) ==
LOC: PMG 09:57
PROVIDERS: ATTEND Registered Nurse
DX: M25.511 Pain in right shoulder (principal); M25.512 Pain in left shoulder; R20.2 Paresthesia of skin; H92.03 Otalgia, bilateral; Z86.718 Personal history of other venous thrombosis and embolism
CPT/HCPCS: 36415; 80053; 82607; 84443; 84484; 85025; 85379; 85651; 86038

== ENCOUNTER → 2020-01-12 | Outpatient (CLI) | payer BC ==
--- NOTE | 2020-01-12 13:27 | RAD ---
Three-view cervical spine dated 01/12/2020. No comparison available. Clinical data indication: Pain. FINDINGS: 3 views obtained. Sagittal alignment is anatomic. Vertebral body heights are maintained. No prevertebral soft tissue swelling. Posterior elements are intact. C1-C2 articulation unremarkable. IMPRESSION: No acute radiographic abnormality. Electronically signed by: Durga Callahan MD (01/12/2020 1:24 PM) [facility]
== END ==
LOC: DXRAD 12:02
PROVIDERS: ATTEND Physician Assistant Medical
DX: M54.2 Cervicalgia (principal)
CPT/HCPCS: 72040

== ENCOUNTER → 2020-01-15 | Outpatient (CLI) | payer BC ==
[~2020-01-15] MED LIST changes: +IOHEXOL 350 MG/ML 100 ML VIAL. IV ONE
--- NOTE | 2020-01-15 12:58 | RAD ---
CT ANGIOGRAPHY CHEST INDICATION: Chest pain, history of DVT. Comparison: 07/17/2017. TECHNIQUE: Following the uneventful administration of intravenous contrast, 100 cc Omnipaque 350, axial CT sections were obtained through the lungs and upper abdomen. Multiplanar reconstructions and MIP images were obtained. PQRS compliance statement: One or more of the following individualized dose reduction techniques were utilized for this examination: 1. Automated exposure control 2. Adjustment of the mA and/or kV according to patient size 3. Use of iterative reconstruction technique FINDINGS: Pulmonary arteries: No evidence of pulmonary thrombolic disease. Lungs and Airways: No pulmonary mass or consolidation. Bibasilar dependent atelectasis. No abnormality of the central airways. Pleura: The pleural spaces are normal. Heart and Mediastinum: The visualized thyroid is normal in size and attenuation. No axillary or supraclavicular lymphadenopathy. No mediastinal, hilar or retrocrural lymphadenopathy. The heart and pericardium are within normal limits. The great vessels of the thorax are normal. Abdomen: Limited images through the upper abdomen show no abnormality of the visualized organs. Bones and Soft Tissues: The visualized bones and chest wall soft tissues are within normal limits. IMPRESSION: 1. No evidence of pulmonary thromboembolic disease. 2. No pulmonary mass or consolidation. Electronically signed by: Omar Arciniega MD (01/15/2020 12:56 PM) [id number]
== END | disposition home or self-care (01) ==
LOC: CT 11:54
PROVIDERS: ATTEND Physician Assistant Medical
DX: J98.11 Atelectasis (principal); R07.9 Chest pain, unspecified
CPT/HCPCS: 71275; Q9967

== ENCOUNTER 2020-04-12 18:49 | Emergency (ER) | payer BC ==
[~2020-04-12] VITALS: Ht 162.6 cm; Wt 99.4 kg
[~2020-04-12 18:49] MED LIST changes: -IOHEXOL 350 MG/ML 100 ML VIAL. IV ONE; +WARF1TAB2 PO; -WARF1TAB74 PO
[2020-04-12] MEDS ORDERED: PRED50TA PO (19:39)
--- NOTE | 2020-04-12 19:39 | PHYS DOC ---
Past History Past Medical History: Hypothyroid, Other Additional Past Medical Histor: PCOS Past Surgical History: No Surgical History Smoking: Less than 1pk/day Alcohol Use: None Drug Use: None General Adult EDM: Chief Complaint: SHOULDER INJURY HPI: HPI: 24-year-old female presents with left shoulder pain. The patient has had intermittent chronic issues with the left shoulder and upper chest. She has had a cardiac work-up in the past and it was negative. She presents today because she woke up this morning with an aching sensation of the upper left chest and shoulder blade region. She has had intermittent numbness in all 5 fingers of the left hand. She did not do anything strenuous yesterday. She denies any trauma. She has no history of neck or shoulder surgeries or significant injury. She had a cervical spine x-ray a few months ago which was normal. She is trying to get into a neurologist, but it is been difficult due to COVID-19. She just does not understand what is happening. She denies fever or chills. She has no other complaints at this time. Review of Systems: Review of Systems: Constitutional: Denies fever or chills Eyes: Denies change in visual acuity HENT: Denies nasal congestion or sore throat Respiratory: Denies cough or shortness of breath Cardiovascular: Denies chest pain or edema GI: Denies abdominal pain, nausea, vomiting, bloody stools or diarrhea : Denies dysuria Musculoskeletal: Left shoulder pain Integument: Denies rash Neurologic: Denies headache, focal weakness or sensory changes Endocrine: Denies polyuria or polydipsia Lymphatic: Denies swollen glands Psychiatric: Denies depression or anxiety Heart Score: Risk Factors: Risk Factors: DM, Current or recent (<one month) smoker, HTN, HLP, family history of CAD, obesity. Risk Scores: Score 0 - 3: 2.5% MACE over next 6 weeks - Discharge Home Score 4 - 6: 20.3% MACE over next 6 weeks - Admit for Clinical Observation Score 7 - 10: 72.7% MACE over next 6 weeks - Early Invasive Strategies Allergies: Allergies: Allergies Coded Allergies Type Severity Reaction Last Updated Verified No Known Drug Allergies 07/22/18 No Physical Exam: PE: Constitutional: Well developed, well nourished, no acute distress, non-toxic appearance. [] HENT: Normocephalic, atraumatic, bilateral external ears normal, oropharynx moist, no oral exudates, nose normal. [] Eyes: PERRLA, EOMI, conjunctiva normal, no discharge. [] Neck: Normal range of motion, no tenderness, supple, no stridor. [] Cardiovascular: Heart rate regular rhythm, no murmur [] Lungs & Thorax: Bilateral breath sounds clear to auscultation [] Abdomen: Bowel sounds normal, soft, no tenderness, no masses, no pulsatile masses. [] Skin: Warm, dry, no erythema, no rash. [] Back: No tenderness, no CVA tenderness. [] Extremities: Increase in tingling and pain sensation with raising her left shoulder above 90 degrees. Also reproduction of symptoms with in her head and bending, compressing the cervical spine. [] Neurologic: Alert and oriented X 3, normal motor function, normal sensory function, no focal deficits noted. [] Psychologic: Affect normal, judgement normal, mood normal. [] Current Patient Data: Vital Signs: Vital Signs Date Time Temp Pulse Resp B/P (MAP) Pulse Ox O2 Delivery O2 Flow Rate FiO2 04/12/20 19:00 97.6 91 16 153/100 (117) 97 Room Air EKG: EKG: [] Radiology/Procedures: Radiology/Procedures: [] Course & Med Decision Making: Course & Med Decision Making Pertinent Labs and Imaging studies reviewed. (See chart for details) I do not believe that further imaging is warranted at this time. Without trauma, this is not likely to be helpful. Based on the patient's symptoms and history, this sounds like it could be nerve impingement somewhere from the cervical spine into the shoulder girdle. I will try 5-day course of prednisone 50 mg. I have also encouraged the patient continue to follow-up with neurology for further testing and evaluation. She is stable for discharge at this time. [] Dragon Disclaimer: Claudia Disclaimer: This electronic medical record was generated, in whole or in part, using a voice recognition dictation system. Departure Departure: Impression: Primary Impression: Cervical radicular pain Disposition: HOME/RESIDENCE PRIOR TO ADM Condition: STABLE Referrals: JOHN PAUL BALL (PCP) Patient Instructions: Cervical Radiculopathy, [id number] Scripts Prednisone (PREDNISONE) 50 Mg Tablet 1 TAB PO DAILY for cervical radiculopathy, #5 TAB Prov: PB LOZANO DO 04/12/20 Justification of Admission: Justification of Admission: Justification of Admission Dx: N/A PB LOZANO DO Apr 12, 2020 19:39
[2020-04-12 19:40] VITALS: BP 140/93
== END 2020-04-12 19:42 | disposition home or self-care (01) ==
LOC: ER 18:49
DX: M54.12 Radiculopathy, cervical region (principal); M25.512 Pain in left shoulder; R20.0 Anesthesia of skin; E03.9 Hypothyroidism, unspecified; F17.200 Nicotine dependence, unspecified, uncomplicated; E28.2 Polycystic ovarian syndrome
CPT/HCPCS: 99283

== ENCOUNTER 2020-05-02 12:51 | Emergency (ER) | payer BC ==
[~2020-05-02] VITALS: Ht 162.6 cm; Wt 99.4 kg
[2020-05-02] MEDS ORDERED: methylPREDNISolone SOD SUCC PF 125 MG/2 ML VIAL. IM ONE (13:15)
[2020-05-02] MEDS ORDERED: PRED20TA PO (13:20)
--- NOTE | 2020-05-02 13:20 | PHYS DOC ---
Past History Past Medical History: Hypothyroid, Other Additional Past Medical Histor: PCOS Past Surgical History: No Surgical History Smoking: Less than 1pk/day Alcohol Use: None Drug Use: None General Adult EDM: Chief Complaint: CHEST PAIN HPI: HPI: Patient is a 24-year-old otherwise healthy female who presents with pain in her neck down into her left arm. She states this happens off and on. Sometimes it is in her right arm sometimes it is in her left arm. She also complains of pain up into her left shoulder. She denies any shortness of breath or dyspnea on exertion. She denies any nausea or vomiting. She states she had a similar episode that she presented to the hospital a couple of months ago had a cardiac work-up and a CT angiogram of the chest which did not show any evidence of a blood clot. She denies any swelling in her lower extremities. She does state that the pain tends to get worse if she moves a certain way. [] Review of Systems: Review of Systems: Constitutional: Denies fever or chills Eyes: Denies change in visual acuity HENT: Denies nasal congestion or sore throat Respiratory: Denies cough or shortness of breath Cardiovascular: Denies chest pain or edema GI: Denies abdominal pain, nausea, vomiting, bloody stools or diarrhea : Denies dysuria Musculoskeletal: Per HPI Integument: Denies rash Neurologic: Denies headache, focal weakness or sensory changes Endocrine: Denies polyuria or polydipsia Lymphatic: Denies swollen glands Psychiatric: Denies depression or anxiety Heart Score: Risk Factors: Risk Factors: DM, Current or recent (<one month) smoker, HTN, HLP, family history of CAD, obesity. Risk Scores: Score 0 - 3: 2.5% MACE over next 6 weeks - Discharge Home Score 4 - 6: 20.3% MACE over next 6 weeks - Admit for Clinical Observation Score 7 - 10: 72.7% MACE over next 6 weeks - Early Invasive Strategies Allergies: Allergies: Allergies Coded Allergies Type Severity Reaction Last Updated Verified No Known Drug Allergies 07/22/18 No Physical Exam: PE: Constitutional: Well developed, well nourished, no acute distress, non-toxic appearance. [] HENT: Normocephalic, atraumatic, bilateral external ears normal, oropharynx moist, no oral exudates, nose normal. [] Eyes: PERRLA, EOMI, conjunctiva normal, no discharge. [] Neck: Normal range of motion, no tenderness, supple, no stridor. [] Cardiovascular:Heart rate regular rhythm, no murmur [] Lungs & Thorax: Bilateral breath sounds clear to auscultation [] Abdomen: Bowel sounds normal, soft, no tenderness, no masses, no pulsatile masses. [] Skin: Warm, dry, no erythema, no rash. [] Back: No tenderness, no CVA tenderness. [] Extremities: No tenderness, no cyanosis, no clubbing, ROM intact, no edema. [] Neurologic: Alert and oriented X 3, normal motor function, normal sensory function, no focal deficits noted. [] Psychologic: Affect normal, judgement normal, mood normal. [] EKG: EKG: EKG: Sinus tachycardia no obvious ischemic ST-T changes rate of 110 [] Radiology/Procedures: Radiology/Procedures: [] Course & Med Decision Making: Course & Med Decision Making Pertinent Labs and Imaging studies reviewed. (See chart for details) [] Dragon Disclaimer: Dragon Disclaimer: This electronic medical record was generated, in whole or in part, using a voice recognition dictation system. Departure Departure: Impression: Primary Impression: Cervical radiculopathy Disposition: 01 HOME/RESIDENCE PRIOR TO ADM Condition: STABLE Referrals: JOHN PAUL BALL (PCP) Patient Instructions: Cervical Radiculopathy Additional Instructions: Return to the emergency department with any new or concerning symptoms Scripts Prednisone (PREDNISONE) 20 Mg Tablet 1 TAB PO TID for radiculopathy for 5 Days, #15 TAB Prov: JOHN MALDONADO DO 05/02/20 Justification of Admission: Justification of Admission: Justification of Admission Dx: N/A JOHN MALDONADO DO May 02, 2020 13:20
== END 2020-05-02 13:29 | disposition home or self-care (01) ==
LOC: ER 12:51
DX: M54.12 Radiculopathy, cervical region (principal); E03.9 Hypothyroidism, unspecified; E28.2 Polycystic ovarian syndrome; F17.200 Nicotine dependence, unspecified, uncomplicated
CPT/HCPCS: 96372; 99283; J2930

== ENCOUNTER 2020-05-14 16:05 | Emergency (ER) | payer BC ==
[~2020-05-14] VITALS: Ht 162.6 cm; Wt 99.4 kg
[~2020-05-14 16:05] MED LIST changes: +PRED20TA PO
--- NOTE | 2020-05-14 17:09 | PHYS DOC ---
Past History Past Medical History: Hypothyroid, Other Additional Past Medical Histor: PCOS Past Surgical History: No Surgical History Smoking: Less than 1pk/day Alcohol Use: None Drug Use: None General Adult EDM: Chief Complaint: HEADACHE HPI: HPI: 24-year-old female presents with right sided head pain for the last 5 days. She describes it as a throbbing sensation. It feels like it is in the temporal and parietal scalp. She is also had some dizziness which she describes as a lightheaded feeling. Her right eye heals more prominent than the left though the pain to subtypes behind both eyes. She has been to the urgent care and her primary care physician. No definitive diagnosis was made. She was placed on amoxicillin for possible ear infection. She has been taking this for 1 day. The patient is concerned there is something going on in her brain. She has no history of significant headaches. She has had migraines before, but they do not feel anything like this. She has never had anything last this long. She is also never had visual disturbance with it such as dizziness. She denies fever chills. She denies any changes in medications. Denies falls or trauma. She has not had any nausea, vomiting, or diarrhea. Review of Systems: Review of Systems: Constitutional: Denies fever or chills Eyes: Denies change in visual acuity HENT: Denies nasal congestion or sore throat Respiratory: Denies cough or shortness of breath Cardiovascular: Denies chest pain or edema GI: Denies abdominal pain, nausea, vomiting, bloody stools or diarrhea : Denies dysuria Musculoskeletal: Denies back pain or joint pain Integument: Denies rash Neurologic: Head pain. Denies focal weakness or sensory changes Endocrine: Denies polyuria or polydipsia Lymphatic: Denies swollen glands Psychiatric: Denies depression or anxiety Heart Score: Risk Factors: Risk Factors: DM, Current or recent (<one month) smoker, HTN, HLP, family history of CAD, obesity. Risk Scores: Score 0 - 3: 2.5% MACE over next 6 weeks - Discharge Home Score 4 - 6: 20.3% MACE over next 6 weeks - Admit for Clinical Observation Score 7 - 10: 72.7% MACE over next 6 weeks - Early Invasive Strategies Allergies: Allergies: Allergies Coded Allergies Type Severity Reaction Last Updated Verified No Known Drug Allergies 10/6/18 No Physical Exam: PE: Constitutional: Well developed, well nourished, no acute distress, non-toxic appearance. [] HENT: Normocephalic, atraumatic, bilateral external ears normal, oropharynx moist, no oral exudates, nose normal. [] Eyes: PERRLA, EOMI, conjunctiva normal, no discharge. Limited ophthalmoscope exam did not show any obvious hemorrhages or other abnormal findings. [] Neck: Normal range of motion, no tenderness, supple, no stridor. [] Cardiovascular:Heart rate regular rhythm, no murmur [] Lungs & Thorax: Bilateral breath sounds clear to auscultation [] Abdomen: Bowel sounds normal, soft, no tenderness, no masses, no pulsatile masses. [] Skin: Warm, dry, no erythema, no rash. [] Back: No tenderness, no CVA tenderness. [] Extremities: No tenderness, no cyanosis, no clubbing, ROM intact, no edema. [] Neurologic: Alert and oriented X 3, normal motor function, normal sensory function, no focal deficits noted. [] Psychologic: Affect normal, judgement normal, mood concerned.. [] EKG: EKG: [] Radiology/Procedures: Radiology/Procedures: [] Impressions: CT HEAD WO CONTRAST History: Reason: Headache 5 days, new onset / Spl. Instructions: / History: Comparison: None. Technique: Noncontrast CT imaging was performed of the head. Exposure: One or more of the following individualized dose reduction techniques were utilized for this examination: 1. Automated exposure control 2. Adjustment of the mA and/or kV according to patient size 3. Use of iterative reconstruction technique. Findings: No intracranial hemorrhage. No mass effect. No hydrocephalus. Extra-axial spaces are unremarkable. Imaged orbits are unremarkable. Imaged paranasal sinuses and mastoid air cells are clear. No acute calvarial fracture. Impression: 1. No acute intracranial abnormality. Electronically signed by: Jean Paul Lau DO (05/14/2020 6:43 PM) [facility] DICTATED AND SIGNED BY: JEAN PAUL LAU DO DATE: 05/14/201842 CC: PB LOZANO DO; LENORE CARRION MD; JOHN PAUL BALL ~ Course & Med Decision Making: Course & Med Decision Making Pertinent Labs and Imaging studies reviewed. (See chart for details) The patient's labs show slight elevated white count. The rest are unremarkable. Her head CT is negative for acute findings. This could be related to her eyes. The patient has an appointment with her eye doctor tomorrow. I believe this is a prudent next step. I do not see any life-threatening acute condition at this time. She is stable for discharge. [] Dragon Disclaimer: Dragon Disclaimer: This electronic medical record was generated, in whole or in part, using a voice recognition dictation system. Departure Departure: Impression: Primary Impression: Headache above the eye region Disposition: HOME/RESIDENCE PRIOR TO ADM Condition: STABLE Referrals: JOHN PAUL BALL (PCP) Patient Instructions: General Headache Without Cause, [id number] Justification of Admission: Justification of Admission: Justification of Admission Dx: N/A PB LOZANO DO May 14, 2020 17:09
[2020-05-14 17:39] LABS: BASO # 0.1 x10^3/uL (0.0-0.2); BASO % 1 % (0-3); EOS # 0.2 x10^3/uL (0.0-0.7); EOS % 2 % (0-3); HEMATOCRIT 44.6 % (36.0-47.0); HEMOGLOBIN 15.3 g/dL (12.0-15.5); LYMPH # 3.4 x10^3/uL (1.0-4.8); LYMPH % 25 % (24-48); MEAN CORPUSCULAR HEMOGLOBIN 32 pg (25-35); MEAN CORPUSCULAR HGB CONC 34 g/dL (31-37); MEAN CORPUSCULAR VOLUME 92 fL (79-100); MONO # 0.9 x10^3/uL (0.0-1.1); MONO % 7 % (0-9); NEUT # 8.7 x10^3uL (1.8-7.7); NEUT % 66 % (31-73); PLATELET COUNT 304 x10^3/uL (140-400); RED BLOOD COUNT 4.84 x10^6/uL (3.50-5.40); RED CELL DISTRIBUTION WIDTH 12.8 % (11.5-14.5); WHITE BLOOD COUNT 13.2 x10^3/uL (4.0-11.0)
[2020-05-14 17:43] LABS: CREATININE 1.1 mg/dL (0.6-1.0); POTASSIUM 3.8 mmol/L (3.5-5.1)
[2020-05-14 17:48] LABS: BARBITURATES NEG (NEG); BENZODIAZEPINES NEG (NEG); CANNABINOIDS NEG (NEG); COCAINE NEG (NEG); METHADONE NEG (NEG); OPIATES NEG (NEG); PHENCYCLIDINE NEG (NEG)
[2020-05-14 17:48] LABS: ALBUMIN 3.9 g/dL (3.4-5.0); ALBUMIN/GLOBULIN RATIO 1.1 (1.0-1.7); TOTAL BILIRUBIN 0.2 mg/dL (0.2-1.0); TOTAL PROTEIN 7.5 g/dL (6.4-8.2)
[2020-05-14 17:49] LABS: AMPHETAMINE/METHAMPHETAMINE NEG (NEG)
[2020-05-14 17:57] LABS: BACTERIA,URINE FEW /HPF (0-FEW); BILIRUBIN,URINE NEG (NEG); CLARITY,URINE HAZY; COLOR,URINE YELLOW; GLUCOSE,URINE NEG (NEG); NITRITE,URINE NEG (NEG); RBC,URINE OCC /HPF (0-2); SQUAMOUS EPITHELIAL CELL,UR MANY /LPF; UROBILINOGEN,URINE 0.2 mg/dL (0.2 mg/dL)
--- NOTE | 2020-05-14 18:46 | RAD ---
CT HEAD WO CONTRAST History: Reason: Headache 5 days, new onset / Spl. Instructions: / History: Comparison: None. Technique: Noncontrast CT imaging was performed of the head. Exposure: One or more of the following individualized dose reduction techniques were utilized for this examination: 1. Automated exposure control 2. Adjustment of the mA and/or kV according to patient size 3. Use of iterative reconstruction technique. Findings: No intracranial hemorrhage. No mass effect. No hydrocephalus. Extra-axial spaces are unremarkable. Imaged orbits are unremarkable. Imaged paranasal sinuses and mastoid air cells are clear. No acute calvarial fracture. Impression: 1. No acute intracranial abnormality. Electronically signed by: Jean Paul Lau DO (05/14/2020 6:43 PM) [facility]
[2020-05-14 19:05] VITALS: BP 129/91
== END 2020-05-14 19:09 | disposition home or self-care (01) ==
LOC: ER 16:05
DX: G43.909 Migraine, unspecified, not intractable, without status migrainosus (principal); R42 Dizziness and giddiness; E03.9 Hypothyroidism, unspecified; F17.200 Nicotine dependence, unspecified, uncomplicated
CPT/HCPCS: 36415; 70450; 80053; 80307; 81001; 81025; 85025; 87086; 99284-25

== ENCOUNTER 2020-06-17 17:13 | Emergency (ER) | payer BC ==
[~2020-06-17] VITALS: Ht 162.6 cm; Wt 102.0 kg
[2020-06-17 17:32] VITALS: BP 154/87
--- NOTE | 2020-06-17 17:39 | PHYS DOC ---
Past History Past Medical History: Anxiety, Depression, DVT, Hypothyroid Additional Past Medical Histor: PCOS Past Surgical History: Other Additional Past Surgical Histo: right leg Smoking: Less than 1pk/day Alcohol Use: None Drug Use: None Adult General HPI HPI Patient is a 25-year-old female who complains of dyspnea. Patient was seen and evaluated by her PCP yesterday and diagnosed with what sounds to be sinusitis and given Zithromax. Patient reports continued URI-like symptoms today such as rhinorrhea, bilateral ear fullness, clear rhinitis and postnasal drip and absence of fever. Patient reports worsening shortness of breath, denies any chest pain but states "it feels like I am breathing hot air". She came to our facility to have outpatient laboratory work done, thinks she had CBC and TSH drawn but unsure what else around 3 PM. Patient went home and continued to be dyspneic on exertion and at rest prompting her to seek care at our ER today. Patient unsure if dyspnea is related to underlying anxiety. She also reports history of hypothyroidism that started receiving treatment November 2019 without repeat TSH. She also reports history of right lower extremity DVT that was provoked after knee surgery, she is not on any anticoagulation currently Review of Systems Review of Systems Fourteen body systems of review of systems have been reviewed. See HPI for pertinent positives and negative responses, other cano all other systems are negative, non-pertinent or non-contributory Allergies Allergies Allergies Coded Allergies Type Severity Reaction Last Updated Verified No Known Drug Allergies 07/22/18 No Physical Exam Physical Exam Constitutional: Well developed, well nourished, no acute distress, non-toxic appearance. HENT: Normocephalic, atraumatic, bilateral external ears normal, bilateral TMs without any obvious acute infection, minimal fluid behind bilateral TMs, oropharynx moist with mild postnasal drip present, no oral exudates, nose normal. Eyes: PERRLA, EOMI, conjunctiva normal, no discharge. Neck: Normal range of motion, tenderness over medial clavicles bilaterally without any step-off or palpable abnormalities, no crepitus, supple, no stridor. Cardiovascular: Heart rate regular, sinus rhythm, no murmurs rubs or gallops Lungs & Thorax: Bilateral breath sounds clear to auscultation Abdomen: Bowel sounds normal, soft, no tenderness, no masses, no pulsatile masses. Nonsurgical abdomen, no peritoneal signs Skin: Warm, dry, no erythema, no rash. Back: No tenderness, no CVA tenderness. Extremities: No tenderness, no cyanosis, no clubbing, ROM intact, no edema. Negative Homans sign bilaterally Neurologic: Alert and oriented X 3, grossly normal motor & sensory function, no focal deficits noted. Psychologic: Affect normal, judgement normal, anxious mood EKG EKG EKG ordered and interpreted by myself as sinus tachycardia at 102 bpm, unremarkable intervals, mild left axis deviation, no acute ischemic changes, no STEMI Radiology/Procedures Radiology/Procedures [] Course & Med Decision Making Course & Med Decision Making Well-appearing but anxious patient seen on immediate ER arrival ABCs grossly unremarkable Comprehensive history and physical exam obtained, attempted to see PCPs recent office note and laboratory studies drawn today without success. Pertinent diagnostic studies ordered. Cannot rule out patient via [facility] or [place] given history of DVT EKG reviewed by myself showing no acute ischemic findings, sinus tachycardia only at this time. All other diagnostic studies pending completion at this time At this time and work-up, my shift is ended. Thorough signout given to oncoming physician, Dr. Camacho, who will assume all patient care going forward. Please defer to his documentation regarding future care of this patient Dragon Disclaimer Dragon Disclaimer This electronic medical record was generated, in whole or in part, using a voice recognition dictation system. Departure Departure: Disposition: 01 HOME/RESIDENCE PRIOR TO ADM Condition: STABLE Referrals: JOHN PAUL BALL (PCP) Justification of Admission: Justification of Admission: Justification of Admission Dx: N/A JAMES MAI DO Jun 17, 2020 17:39
--- NOTE | 2020-06-17 17:57 | RAD ---
Exam: Chest one view INDICATION: Shortness of breath TECHNIQUE: Frontal view of the chest Comparisons: None FINDINGS: The cardiomediastinal silhouette and pulmonary vessels are within normal limits. The lung and pleural spaces are clear. IMPRESSION: No acute cardiopulmonary process. Electronically signed by: Radha Bui MD (06/17/2020 5:55 PM) [id number]
[2020-06-17 19:08] LABS: CALCIUM 9.7 mg/dL (8.5-10.1); CREATININE 0.9 mg/dL (0.6-1.0); GFR 76.3; POTASSIUM 3.8 mmol/L (3.5-5.1)
[2020-06-17 19:12] LABS: BASO # 0.1 x10^3/uL (0.0-0.2); BASO % 1 % (0-3); EOS # 0.2 x10^3/uL (0.0-0.7); EOS % 1 % (0-3); HEMOGLOBIN 14.8 g/dL (12.0-15.5); LYMPH % 26 % (24-48); MEAN CORPUSCULAR HEMOGLOBIN 31 pg (25-35); MEAN CORPUSCULAR HGB CONC 34 g/dL (31-37); MEAN CORPUSCULAR VOLUME 93 fL (79-100); MONO # 0.7 x10^3/uL (0.0-1.1); MONO % 6 % (0-9); NEUT # 7.4 x10^3uL (1.8-7.7); NEUT % 66 % (31-73); PLATELET COUNT 274 x10^3/uL (140-400); RED BLOOD COUNT 4.74 x10^6/uL (3.50-5.40); WHITE BLOOD COUNT 11.3 x10^3/uL (4.0-11.0)
[2020-06-17 19:14] LABS: ALBUMIN/GLOBULIN RATIO 1.2 (1.0-1.7); TOTAL BILIRUBIN 0.2 mg/dL (0.2-1.0); TOTAL PROTEIN 7.3 g/dL (6.4-8.2)
--- NOTE | 2020-06-18 06:29 | EKG ---
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
== END 2020-06-17 20:18 | disposition home or self-care (01) ==
LOC: ER 17:13
DX: R06.02 Shortness of breath (principal); R09.82 Postnasal drip; F41.9 Anxiety disorder, unspecified; F32.9 Major depressive disorder, single episode, unspecified; E03.9 Hypothyroidism, unspecified; E28.2 Polycystic ovarian syndrome; F17.200 Nicotine dependence, unspecified, uncomplicated; Z86.718 Personal history of other venous thrombosis and embolism
CPT/HCPCS: 36415; 71045; 80053; 84443; 84484; 85025; 85379; 93005; 99285

== ENCOUNTER 2020-07-22 10:02 | Emergency (ER) | payer BC ==
[~2020-07-22] VITALS: Ht 162.6 cm; Wt 100.4 kg
--- NOTE | 2020-07-22 10:40 | PHYS DOC ---
Past History Past Medical History: Anxiety, DVT, Hyperthyroid, Ovarian Cyst Additional Past Medical Histor: PCOS Past Surgical History: Tonsillectomy, Other Additional Past Surgical Histo: right leg surgery Smoking: Less than 1pk/day Alcohol Use: None Drug Use: None General Adult EDM: Chief Complaint: RIB PAIN HPI: HPI: 25 yo (ectopic > 5 yrs ago, tx'ed with medicine) F PMH PCOS, hype rthyroidism, RLE bDVT in 2010 and anxiety, presents to the ed with c/o right and left sided anterior rib pain with tenderness to palpation for the past 2 days, some relief with Aleve. Patient states she had a cold 2 weeks, seen in urgent care clinic for nasal drainage and a sore throat. Did not have a covid test at that time. Patient reports she has a history of provoked DVT (5 total) in her right lower extremity after reconstructive surgery and was on Coumadin and Xarelto that was discontinued in early 1999'. Seen by hematology, and worked up for hypercoagulable state which was negative. Patient currently has a Mirena. Reports she has a fast heart rate that she has been seen by cardiology for and they have attributed this to her anxiety. Reports her anxiety has been poorly controlled because she was out of her Xanax for 1 week. Denies any associated trauma, fall or blunt injury. Review of Systems: Review of Systems: Constitutional: Denies fever or chills Eyes: Denies change in visual acuity HENT: Denies nasal congestion or sore throat Respiratory: Denies cough or shortness of breath Cardiovascular: Denies chest pain or edema GI: Denies abdominal pain, nausea, vomiting, bloody stools or diarrhea : Denies dysuria Musculoskeletal: Denies back pain or joint pain Integument: Denies rash Neurologic: Denies headache, focal weakness or sensory changes Endocrine: Denies polyuria or polydipsia Lymphatic: Denies swollen glands Psychiatric: Denies depression or SI or HI Heart Score: Risk Factors: Risk Factors: DM, Current or recent (<one month) smoker, HTN, HLP, family history of CAD, obesity. Risk Scores: Score 0 - 3: 2.5% MACE over next 6 weeks - Discharge Home Score 4 - 6: 20.3% MACE over next 6 weeks - Admit for Clinical Observation Score 7 - 10: 72.7% MACE over next 6 weeks - Early Invasive Strategies Allergies: Allergies: Allergies Coded Allergies Type Severity Reaction Last Updated Verified No Known Drug Allergies 07/22/20 No Physical Exam: PE: Constitutional: Well developed, well nourished, no acute distress, non-toxic appearance. [] HENT: Normocephalic, atraumatic, bilateral external ears normal, oropharynx moist, no oral exudates, nose normal. [] Eyes: EOMI, conjunctiva normal, no discharge. [] Neck: Normal range of motion, supple, no stridor. [] Cardiovascular:Heart rate regular rhythm, no murmur [] Lungs & Thorax: Bilateral breath sounds clear to auscultation []+anterior rib ttp left/right and midaxillary ttp, no bruising Abdomen: Bowel sounds normal, soft, no tenderness, no masses, no pulsatile masses. [] Skin: Warm, dry, no erythema, no rash. [] Back: No tenderness, no CVA tenderness. [] Extremities: No tenderness, no cyanosis, no clubbing, ROM intact, no edema. [] Neurologic: Alert and oriented X 3, normal motor function, normal sensory function, no focal deficits noted. [] Psychologic: Affect normal, judgement normal, mood normal. [] Current Patient Data: Vital Signs: Vital Signs Date Time Temp Pulse Resp B/P (MAP) Pulse Ox O2 Delivery O2 Flow Rate FiO2 07/22/20 10:08 98.7 116 154/87 (109) 99 Room Air EKG: EKG: Sinus rhythm at 74 bpm, no axis deviation, normal intervals, no ST elevations or ST depressions Radiology/Procedures: Radiology/Procedures: IMAGING REPORT Signed PATIENT: MORENITA PARSON ACCOUNT: [id number] : 1995 LOCATION: ER AGE: 25 SEX: F EXAM STATUS: REG ER ORD. PHYSICIAN: DAISY CRAWLEY DO REASON: BILATERAL RIB PAIN PROCEDURE: CHEST PA & LATERAL PA and lateral chest. HISTORY: Bilateral rib pain PA and lateral views were taken of the chest. There is no pneumothorax or pleural effusion. Patient's taken a poor inspiration. Heart is normal in size. There are no acute infiltrates. IMPRESSION: 1. No acute infiltrates. Electronically signed by: Lucio Le MD (07/22/2020 11:45 AM) [id number] DICTATED AND SIGNED BY: LUCIO LE MD DATE: 07/22/20 1146 CC: JOHN PAUL BALL; DAISY CRAWLEY DO ~ Course & Med Decision Making: Course & Med Decision Making Pertinent Labs and Imaging studies reviewed. (See chart for details) Concern for anterior bilateral rib pain after cold 2 weeks prior, likely pleurisy after patient had an upper respiratory infection 2 weeks prior. Patient with d-dimer within normal limits. Patient was tachycardic on arrival but was 75 bpm on my exam. Patient with no unilateral leg swelling, no recent immobilizations or prolonged travel. Has been worked up for hypercoagulable state which was negative. Patient was aware that she was screened and was low risk but pulmonary emboli had not been ruled out. Patient denies any shortness of breath, cough or hemoptysis. Patient was given very strict ED return precautions for difficulties breathing or chest pain. Encouraged urgent outpatient follow-up with PMD. Life-threatening processes were considered but are low suspicion at this time, given history and physical exam. Pt was educated on all prescription medications and adverse effects. All patient's questions were answered and pt was stable at time of discharge. Life/limb-threatening differential includes but is not limited to, acute myocardial infarction, aortic dissection, congestive heart failure, esophageal injury including rupture, surgical abdomen, arrhythmia, cardiomyopathy, myocarditis, pericarditis, peptic ulcer disease, pneumomediastinum, pneumonia, pneumothorax, pulmonary embolus, unstable angina, rib fracture, contusion, peric ardial tamponade or effusion, pulmonary contusion I spoken with the patient and her caregivers. I explained the patient's cond ition, diagnoses and treatment plan based on the information available to me at this time. I have answered the patient and her caregiver's questions and addressed any concerns. The patient and her caregivers have a good understanding of patient's diagnosis, condition and treatment plan as can be expected at this point. Vital signs have been stable. Patient's condition is stable and appropriate for discharge from the emergency department. Patient will pursue further outpatient evaluation with primary care physician or other designated or consulting physician as outlined in the discharge instructions. The patient and/or caregivers are agreeable to this plan of care and follow-up instructions have been explained in detail. The patient and/or caregivers have received these instructions in written form and have expressed an understanding of the discharge instructions. The patient and/or caregivers are aware that any significant change of condition or worsening of symptoms should prompt immediate return to this or the closest emergency department or call to 244. Claudia Disclaimer: Claudia Disclaimer: This electronic medical record was generated, in whole or in part, using a voice recognition dictation system. Departure Departure: Impression: Primary Impression: Pleurisy without effusion Additional Impressions: Rib pain on right side Rib pain on left side Disposition: 01 HOME/RESIDENCE PRIOR TO ADM Condition: STABLE Referrals: JOHN PAUL BALL (PCP) in 3-5days Patient Instructions: Pleurisy Additional Instructions: EMERGENCY DEPARTMENT GENERAL DISCHARGE INSTRUCTIONS Thank you for coming to [facility] (ED) today and trusting us with you care. We trust that you had a positivie experience in our Emergency Department. If you wish to speak to the department management, you may call the director at [phone]. YOUR FOLLOW UP INSTRUCTIONS ARE FOLLOWS: 1. Do you have a private Doctor? If you do not have a private doctor, please ask for a resource list of physicians or clinics that may be able to assist you with follow up care. 2. The Emergency Physician has interpreted your x-rays. The X-Ray specialist will also review them. If there is a change in the findings, you will be notified in 48 hours when at all possible. 3. A lab test or culture has been done, your results will be reviewed and you will be notified if you need a change in treatment. ADDITIONAL INSTRUCTIONS AND INFORMATION: 1. Your care today has been supervised by a physician who is specially trained in emergency care. Many problems require more than one evaluation for a complete diagnosis and treatment. We recommend that you schedule your follow up appointment as recommended to ensure complete treatment of you illness or injury. If you are unable to obtain follow up care and continue to have a problem, or if your condition worsens, we recommend that you return to the ED. 2. We are not able to safely determine your condition over the phone nor are we able to give sound medical advice over the phone. For these safety reasons, if you call for medical advice we will ask you to come to the ED for further evaluation. 3. If you have any questions regarding these discharge instructions please call the ED at [phone]. SAFETY INFORMATION: In the interest of safety, wellness, and injury prevention; we encourage you to wear your sealbelt, if you smoke; quite smoking, and we encourage family to use a protective helmet for bicycling and other sporting events that present an increased risk for head injury. IF YOUR SYMPTOMS WORSEN OR NEW SYMPTOMS DEVELOP, OR YOU HAVE CONCERNS ABOUT YOUR CONDITION; OR IF YOUR CONDITION WORSENS WHILE YOU ARE WAITING FOR YOUR FOLLOW UP APPOINTMENT; EITHER CONTACT YOUR PRIMARY CARE DOCTOR, THE PHYSICIAN WHOSE NAME AND NUMBER YOU WERE GIVEN, OR RETURN TO THE ED IMMEDIATELY. Scripts Ibuprofen (IBUPROFEN) 600 Mg Tablet 600 MG PO Q6HRS for headache, #20 TAB Prov: DAISY CRAWLEY DO 07/22/20 DAISY CRAWLEY DO Jul 22, 2020 10:40
[2020-07-22 11:36] LABS: BASO # 0.1 x10^3/uL (0.0-0.2); BASO % 1 % (0-3); EOS # 0.1 x10^3/uL (0.0-0.7); EOS % 1 % (0-3); HEMATOCRIT 44.2 % (36.0-47.0); HEMOGLOBIN 14.7 g/dL (12.0-15.5); LYMPH # 2.6 x10^3/uL (1.0-4.8); LYMPH % 19 % (24-48); MEAN CORPUSCULAR HEMOGLOBIN 31 pg (25-35); MEAN CORPUSCULAR HGB CONC 33 g/dL (31-37); MEAN CORPUSCULAR VOLUME 94 fL (79-100); MONO # 0.9 x10^3/uL (0.0-1.1); MONO % 7 % (0-9); NEUT % 73 % (31-73); PLATELET COUNT 270 x10^3/uL (140-400); RED BLOOD COUNT 4.72 x10^6/uL (3.50-5.40); RED CELL DISTRIBUTION WIDTH 13.3 % (11.5-14.5); WHITE BLOOD COUNT 13.8 x10^3/uL (4.0-11.0)
[2020-07-22 11:48] LABS: CALCIUM 9.3 mg/dL (8.5-10.1); CREATININE 0.9 mg/dL (0.6-1.0); GFR 76.3; POTASSIUM 3.6 mmol/L (3.5-5.1)
--- NOTE | 2020-07-22 11:48 | RAD ---
PA and lateral chest. HISTORY: Bilateral rib pain PA and lateral views were taken of the chest. There is no pneumothorax or pleural effusion. Patient's taken a poor inspiration. Heart is normal in size. There are no acute infiltrates. IMPRESSION: 1. No acute infiltrates. Electronically signed by: Lucio Le MD (07/22/2020 11:45 AM) [id number]
[2020-07-22 11:52] LABS: ALBUMIN 3.6 g/dL (3.4-5.0); TOTAL BILIRUBIN 0.3 mg/dL (0.2-1.0); TOTAL PROTEIN 7.3 g/dL (6.4-8.2)
[2020-07-22] MEDS ORDERED: IBUP600T16 PO (12:18)
[2020-07-22 12:20] VITALS: BP 107/73
--- NOTE | 2020-07-22 23:49 | EKG ---
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
== END 2020-07-22 12:36 | disposition home or self-care (01) ==
LOC: ER 10:02
DX: R09.1 Pleurisy (principal); F41.9 Anxiety disorder, unspecified; E03.9 Hypothyroidism, unspecified; F17.200 Nicotine dependence, unspecified, uncomplicated; E28.2 Polycystic ovarian syndrome; Z86.718 Personal history of other venous thrombosis and embolism
CPT/HCPCS: 36415; 71046; 80053; 81025; 84484; 85025; 85379; 93005; 99285

== ENCOUNTER → 2020-08-28 | Outpatient (CLI) | payer BC ==
--- NOTE | 2020-08-29 08:48 | RAD ---
Upright and supine views of the abdomen without comparison for generalized abdominal pain with nausea and vomiting. FINDINGS: Scattered abdominal bowel gas without evidence of obstruction. No pathologic calcifications. No osseous abnormalities. IUD. IMPRESSION: 1. Nonobstructive nonspecific bowel gas pattern. Electronically signed by: Cornel Phillips MD (08/29/2020 8:45 AM) [id number]
== END ==
LOC: RAD 16:28
DX: R11.2 Nausea with vomiting, unspecified (principal)
CPT/HCPCS: 74019

== ENCOUNTER 2020-09-22 23:43 | Emergency (ER) | payer BC ==
[~2020-09-22] VITALS: Ht 165.1 cm; Wt 100.2 kg
[2020-09-23] MEDS ORDERED: DIPH25CA58 PO (00:01)
[2020-09-23] MEDS ORDERED: FAMO-63 PO (00:01)
--- NOTE | 2020-09-23 00:02 | PHYS DOC ---
Past History Past Medical History: Anxiety, DVT, Hyperthyroid, Ovarian Cyst Additional Past Medical Histor: PCOS Past Surgical History: Tonsillectomy, Other Additional Past Surgical Histo: right leg surgery Smoking: Less than 1pk/day Alcohol Use: None Drug Use: None General Adult EDM: Chief Complaint: ALLERGIC REACTION HPI: HPI: History obtained from patient. Patient is a 24-year-old female with a history of asthma and anxiety presents with chief complaint of concern for allergic reaction. She notes she was seen at an urgent care facility yesterday and told that her throat looked red. She was prescribed azithromycin course and methylprednisolone starting this morning. She states ever since taking these medications she has felt more difficulty in swallowing. She states just prior to arrival she felt as though she had some wheezing as well. Denies any rashes. Denies vomiting. Denies any sensation of throat closure. Denies any changes to her voice. Denies difficulty swallowing her secretions. Denies fevers. De nies pain with swallowing. Denies any respiratory distress. Has tried only Tylenol prior to arrival. Denies any known medication or environmental allergens. No other complaints. Review of Systems: Review of Systems: Constitutional: Denies fever or chills Eyes: Denies change in visual acuity HENT: Denies nasal congestion or sore throat Respiratory: Denies cough or shortness of breath Cardiovascular: Denies chest pain or edema GI: Denies abdominal pain, nausea, vomiting, bloody stools or diarrhea : Denies dysuria Musculoskeletal: Denies back pain or joint pain Integument: Denies rash Neurologic: Denies headache, focal weakness or sensory changes Endocrine: Denies polyuria or polydipsia Lymphatic: Denies swollen glands Psychiatric: Denies depression or anxiety Allergies: Allergies: Allergies Coded Allergies Type Severity Reaction Last Updated Verified No Known Drug Allergies 07/22/20 No Physical Exam: PE: Constitutional: Well developed, well nourished, no acute distress, non-toxic appearance. [] HENT: Normocephalic, atraumatic, bilateral external ears normal, oropharynx moist, no oral exudates, nose normal. [] ENT: Tolerates saliva. No trismus. Mild erythema of the oropharynx no exudate. No airway obstruction. Normal phonation. Uvula midline. NECK: No midline cervical tenderness. Anterior cervical adenopathy not present. No tenderness of carotid sheath bilaterally. Neck supple with full ROM and without signs of meningismus. No stridor. Eyes: PERRLA, EOMI, conjunctiva normal, no discharge. [] Cardiovascular:Heart rate regular rhythm, no murmur [] Lungs & Thorax: Bilateral breath sounds clear to auscultation [] Abdomen: soft, no tenderness, no masses, no pulsatile masses. [] Skin: Warm, dry, no erythema, no rash. [] Back: No tenderness, no CVA tenderness. [] Extremities: No tenderness, no cyanosis, no clubbing, ROM intact, no edema. [] Neurologic: Alert and oriented X 3, normal motor function, normal sensory function, no focal deficits noted. [] Psychologic: Affect normal, judgement normal, mood normal. [] EKG: EKG: [] Radiology/Procedures: Radiology/Procedures: [] Heart Score: Risk Factors: Risk Factors: DM, Current or recent (<one month) smoker, HTN, HLP, family history of CAD, obesity. Risk Scores: Score 0 - 3: 2.5% MACE over next 6 weeks - Discharge Home Score 4 - 6: 20.3% MACE over next 6 weeks - Admit for Clinical Observation Score 7 - 10: 72.7% MACE over next 6 weeks - Early Invasive Strategies Course & Med Decision Making: Course & Med Decision Making Pertinent Labs and Imaging studies reviewed. (See chart for details) [] Patient is a well-appearing 25-year-old female who presents with concern for allergic reaction. Patient shows no signs of respiratory involvement. No stridulous or wheezing breath sounds appreciated. Patient shows no signs of respiratory distress. Tolerating her secretions with normal phonation. No signs of skin or GI involvement. Unclear whether her symptoms of difficulty swallowing represent allergic reaction versus viral syndrome. Overall clinically patient does not have signs of streptococcal pharyngitis. No signs of deep space infection. No indication for epinephrine administration. She was given oral Benadryl and Pepcid per her request. She was monitored and showed no signs of deterioration. I do feel she is appropriate for discharge home. She was encouraged to discontinue her home medications. Course of steroids to be deferred as the patient reported symptoms began after starting methyl prednisolone for the first time today and overall very low suspicion for allergic reaction. Return precautions discussed and understood. Stable for discharge home. Claudia Disclaimer: Claudia Disclaimer: This electronic medical record was generated, in whole or in part, using a voice recognition dictation system. Departure Departure: Impression: Primary Impression: Dysphagia Qualified Codes: R13.10 - Dysphagia, unspecified Disposition: 01 DC HOME SELF CARE/HOMELESS Condition: STABLE Referrals: JOHN PAUL BALL (PCP) Patient Instructions: Sore Throat Additional Instructions: Please follow-up with your primary care physician for the next 2 to 3 days. Scripts Famotidine (PEPCID) 20 Mg Tablet 20 MG PO BID for dyspepsia for 7 Days, #14 TAB Prov: LEROY RAND DO 09/23/20 Diphenhydramine Hcl (BENADRYL) 25 Mg Capsule 1 CAP PO TID PRN PRN for ALLERGIES for 5 Days, #15 CAP 0 Refills Prov: LEROY RAND DO 09/23/20 LEROY RAND DO Sep 23, 2020 00:01
[2020-09-23 00:20] VITALS: BP 132/90
[2020-09-23] MEDS ORDERED: diphenhydrAMINE HCL 25 MG CAPSULE PO ONE (00:30)
[2020-09-23] MEDS ORDERED: FAMOTIDINE 20 MG TABLET PO ONE (00:30)
== END 2020-09-23 00:20 | disposition home or self-care (01) ==
LOC: ER 23:43
DX: R13.10 Dysphagia, unspecified (principal); R06.2 Wheezing; F41.9 Anxiety disorder, unspecified; Z86.718 Personal history of other venous thrombosis and embolism; E05.90 Thyrotoxicosis, unspecified without thyrotoxic crisis or storm; F17.200 Nicotine dependence, unspecified, uncomplicated
CPT/HCPCS: 99283; Q0163

== ENCOUNTER 2020-11-15 18:00 | Emergency (ER) | payer BC ==
[~2020-11-15] VITALS: Ht 165.1 cm; Wt 104.0 kg
[~2020-11-15 18:00] MED LIST changes: +DIPH25CA58 PO; +FAMO-63 PO
[2020-11-15 18:20] VITALS: BP 119/67
--- NOTE | 2020-11-15 18:58 | PHYS DOC ---
Past History Past Medical History: Asthma Additional Past Medical Histor: blood clot in right leg, tubal Past Surgical History: Tonsillectomy, Other Additional Past Surgical Histo: right leg reconstruction Smoking: Less than 1pk/day Alcohol Use: None Drug Use: None Adult General Chief Complaint Chief Complaint: UPPER EXTREMITY PAIN HPI HPI Patient is an otherwise healthy 25-year-old female who presents with a chief complaint of bilateral upper extremity muscle ache and tingling. States that when she woke up this morning, laying on her right side she had some dull achy pain, 5 out of 10, with some radiation down her arm. States that over the course of the day she also began to have similar symptoms on her left arm a little less severe. States she has had muscle aches like this before in the past and was told she may have fibromyalgia. States that here in the emergency department its not quite as bad and the tingling is gone but still feels achy. Denies any history of traumas, illnesses, fevers, headache, neck pain, chest pain, shortness of breath, abdominal pain, nausea, vomiting. Denies any loss of range of motion. States she had a little burning/tingling in her arms bilaterally earlier but currently has resolved. Denies any recent travel. Denies any Covid/flu symptoms. States she is otherwise eating and drinking normally. States she is making urine and stool normally for her. Review of Systems Review of Systems Review of systems otherwise unremarkable except noted in HPI. Allergies Allergies Allergies Coded Allergies Type Severity Reaction Last Updated Verified No Known Drug Allergies 11/15/20 No Physical Exam Physical Exam Constitutional: Well developed, well nourished, no acute distress, non-toxic appearance. [] HENT: Normocephalic, atraumatic, , oropharynx moist, no oral exudates, Eyes: conjunctiva normal, no discharge. [] Neck: Normal range of motion, no tenderness, supple, no stridor. [] Cardiovascular:Heart rate regular rhythm, no murmur [] Skin: Warm, dry, no erythema, no rash. Capillary refill normal. [] Back: No tenderness, Extremities: No tenderness, no cyanosis, no clubbing, ROM intact, no edema. [] Neurologic: Alert and oriented X 3, normal motor function, normal sensory function, no focal deficits noted. Neurovascular exam normal and bilateral upper extremities. [] Psychologic: Affect normal, judgement normal, mood normal. [] Current Patient Data Vital Signs Vital Signs Date Time Temp Pulse Resp B/P (MAP) Pulse Ox O2 Delivery O2 Flow Rate FiO2 11/15/20 18:20 98.2 106 16 119/67 (84) 95 EKG EKG [] Radiology/Procedures Radiology/Procedures [] Heart Score Risk Factors: Risk Factors: DM, Current or recent (<one month) smoker, HTN, HLP, family history of CAD, obesity. Risk Scores: Risk Factors: DM, Current or recent (<one month) smoker, HTN, HLP, family history of CAD, obesity. Course & Med Decision Making Course & Med Decision Making Patient is a 25-year-old female that presents after waking up with bilateral upper extremity arm ache and tingling Vital signs notable for tachycardia. Physical exam noted above. Patient took NSAIDs just before coming to the emergency department and states she has Tylenol at home. Given ice pack. Patient alert and oriented no acute distress. No focal neurologic deficits noted. Range of motion completely intact. Neurovascular exam intact. Capillary refill normal. Discussed all findings with patient and recommended pain regimen at home including muscle relaxers. Advised to call her primary care physician first thing Tuesday morning to discuss her ED visit and need for MRI to evaluate for cervical/upper extremity radiculopathy versus soft tissue injury. Patient grateful, verbalized understanding and agreed with plan of discharge. [] Dragon Disclaimer Dragon Disclaimer This electronic medical record was generated, in whole or in part, using a voice recognition dictation system. Departure Departure: Impression: Primary Impression: Muscle strain of upper extremity Additional Impression: Numbness and tingling in both hands Disposition: 01 DC HOME SELF CARE/HOMELESS Condition: GOOD Referrals: JOHN PAUL BALL (PCP) Patient Instructions: Cervical Radiculopathy, [id number], Peripheral Nerve Problems-Brief Additional Instructions: Please read all the attached information. As discussed please continue using your NSAIDs at home, add Tylenol and ice as needed. You are given a work note for Tuesday to allow contact with your primary care physician to discuss your ED visit, and need for further evaluation, and imaging such as MRI. Please come back to the emergency department immediately with any new or concerning symptoms. Scripts Cyclobenzaprine Hcl (CYCLOBENZAPRINE HCL) 5 Mg Tablet 1 TAB PO BIDAFTMEAL PRN for muscle spasm for 7 Days, #14 TAB Prov: IRMA LUNA MD 11/15/20 Problem Qualifiers IRMA LUNA MD Nov 15, 2020 18:58
[2020-11-15] MEDS ORDERED: CYCL5TAB PO (19:00)
== END 2020-11-15 19:04 | disposition home or self-care (01) ==
LOC: ER 18:00
DX: S66.911A Strain of unspecified muscle, fascia and tendon at wrist and hand level, right hand, initial encounter (principal); S66.912A Strain of unspecified muscle, fascia and tendon at wrist and hand level, left hand, initial encounter; R20.2 Paresthesia of skin; J45.909 Unspecified asthma, uncomplicated; F17.200 Nicotine dependence, unspecified, uncomplicated; X58.XXXA Exposure to other specified factors, initial encounter; Y93.89 Activity, other specified; Y92.89 Other specified places as the place of occurrence of the external cause; Y99.8 Other external cause status
CPT/HCPCS: 99283

== ENCOUNTER 2020-11-29 02:47 | Emergency (ER) | payer BC ==
[~2020-11-29] VITALS: Ht 165.1 cm; Wt 105.6 kg
[~2020-11-29 02:47] MED LIST changes: +CYCL5TAB PO
[2020-11-29] MEDS ORDERED: FLUORESCEIN 1MG EYE STRIP. ONE (02:50)
[2020-11-29] MEDS ORDERED: TETRACAINE 0.5% OPHTH SOLUTION 4ML BOTTLE. ONE (02:50)
--- NOTE | 2020-11-29 02:59 | PHYS DOC ---
Past History Past Medical History: Asthma Additional Past Medical Histor: blood clot in right leg, tubal Past Surgical History: Tonsillectomy, Other Additional Past Surgical Histo: right leg reconstruction Smoking: Less than 1pk/day Alcohol Use: None Drug Use: None General Adult EDM: Chief Complaint: EYE PROBLEMS HPI: HPI: ".. I just go off work.. and was cooking a cheese burger... 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 eye injury. Patient has injection of right conjunctiva. No overall vision changes. Patient does wear glasses. No recent travel. No severe ill contacts. No history immunosuppression. Patient did take some Tylenol at home. Did rinse eye at home. Patient visual acuity- see nursing notes. No cell or flare noted. Did have mild fluorescein uptake. Does have some erythema of the lower eyelid. Patient does have an radiological technologist. Review of Systems: Review of Systems: Constitutional: Denies fever or chills Eyes: Complains of right eye conjunctivitis from grease burn HENT: Denies nasal congestion or sore throat Respiratory: Denies cough or shortness of breath Cardiovascular: Denies chest pain or edema GI: Denies abdominal pain, nausea, vomiting, bloody stools or diarrhea : Denies dysuria Musculoskeletal: Denies back pain or joint pain Integument: Denies rash Neurologic: Denies headache, focal weakness or sensory changes Endocrine: Denies polyuria or polydipsia Lymphatic: Denies swollen glands Psychiatric: Denies depression or anxiety Family History: Family History: Noncontributory Current Medications: Current Meds: Current Medications Medications (Trade) Dose Ordered Sig/Shawn Start Time Stop Time Status Last Admin Dose Admin Fluorescein Sodium (Ful-Ana Maria 1mg) 1 strip STK-MED ONCE 11/29/20 02:50 11/29/20 02:50 DC Tetracaine HCl (Tetracaine) 40 drop STK-MED ONCE 11/29/20 02:50 11/29/20 02:50 DC Allergies: Allergies: Allergies Coded Allergies Type Severity Reaction Last Updated Verified No Known Drug Allergies 11/15/20 No Physical Exam: PE: Constitutional: Well developed, well nourished, in acute distress, non-toxic appearance. [] HENT: Normocephalic, atraumatic, bilateral external ears normal, oropharynx moist, no oral exudates, nose normal. [] Eyes: PERRLA, EOMI, Lt. conjunctiva normal, no discharge. [] Except findings and right eye as per HPI Neck: Normal range of motion, no tenderness, supple, no stridor. [] Cardiovascular:Heart rate regular rhythm, no murmur [] Lungs & Thorax: Bilateral breath sounds equal at apex auscultation [] Abdomen: Bowel sounds normal, soft, no tenderness, no masses, no pulsatile masses. [] Skin: Warm, dry, no erythema, no rash. [] Back: No tenderness, no CVA tenderness. [] Extremities: No tenderness, no cyanosis, no clubbing, ROM intact, no edema. [] Neurologic: Alert and oriented X 3, normal motor function, normal sensory function, no focal deficits noted. [] Psychologic: Affect anxious, judgement normal, mood normal. [] EKG: EKG: [] Radiology/Procedures: Radiology/Procedures: [] Heart Score: Risk Factors: Risk Factors: DM, Current or recent (<one month) smoker, HTN, HLP, family history of CAD, obesity. Risk Scores: Score 0 - 3: 2.5% MACE over next 6 weeks - Discharge Home Score 4 - 6: 20.3% MACE over next 6 weeks - Admit for Clinical Observation Score 7 - 10: 72.7% MACE over next 6 weeks - Early Invasive Strategies Course & Med Decision Making: Course & Med Decision Making Pertinent Labs and Imaging studies reviewed. (See chart for details) Patient use a small amount erythromycin ointment 4 times a day. Patient use Toradol eye drops four times a day. Call her radiological technologist in the morning for follow-up. 1 may follow-up with Dr. Mejia or Dr. Bowden for care. Impression: 1.Rt conjunctivitis- Chemosis [] Claudia Disclaimer: lCaudia Disclaimer: This electronic medical record was generated, in whole or in part, using a voice recognition dictation system. Departure Departure: Referrals: JOHN PAUL BALL (PCP) Claudia Disclaimer This chart was dictated in whole or in part using Voice Recognition software in a busy, high-work load, and often noisy Emergency Department environment. It may contain unintended and wholly unrecognized errors or omissions. Dragon Disclaimer This chart was dictated in whole or in part using Voice Recognition software in a busy, high-work load, and often noisy Emergency Department environment. It may contain unintended and wholly unrecognized errors or omissions. DARYL OWENS MD Nov 29, 2020 02:59
[2020-11-29 03:00] VITALS: BP 142/80
[2020-11-29] MEDS ORDERED: ERYTHROMYCIN 0.5% OPHTH OINTMENT 1GM TUBE. OD ONE (03:30)
[2020-11-29] MEDS ORDERED: TETRACAINE 0.5% OPHTH SOLUTION 4ML BOTTLE. OD ONE (03:30)
[2020-11-29] MEDS ORDERED: CYCLOPENTOLATE 1% OPTH SOLUTION 2ML BOTTLE. OD ONE (03:30)
[2020-11-29] MEDS ORDERED: KETOROLAC TROMETHAMINE 0.5% OPHTH SOLUTION BOTTLE. OD ONE (03:30)
[2020-11-29] MEDS ORDERED: TROPICAMIDE 1% OPHTH SOLUTION 15ML BOTTLE. OD ONE (04:00)
== END 2020-11-29 03:40 | disposition home or self-care (01) ==
LOC: ER 02:47
DX: H10.89 Other conjunctivitis (principal); L53.9 Erythematous condition, unspecified; J45.909 Unspecified asthma, uncomplicated; F17.200 Nicotine dependence, unspecified, uncomplicated; Z90.89 Acquired absence of other organs; Z98.890 Other specified postprocedural states
CPT/HCPCS: 99283

== ENCOUNTER 2020-12-29 00:17 | Emergency (ER) | payer BC ==
[~2020-12-29] VITALS: Ht 165.1 cm; Wt 105.6 kg
--- NOTE | 2020-12-29 00:39 | PHYS DOC ---
Past History Past Medical History: Asthma, DVT Additional Past Medical Histor: tubal Past Surgical History: Tonsillectomy, Other Additional Past Surgical Histo: right leg reconstruction Smoking: Less than 1pk/day Alcohol Use: None Drug Use: None General Adult EDM: Chief Complaint: WRIST PAIN HPI: HPI: ".. My dog Max .. I had one of his toys last night.. it a fluffy skunk...with squeakers in..it..but he was trying to get it back from me.. .and got a hold on my Rt arm.. it got bruised up.... I thought it is number okay... But at work today mom started aching so bad I could not type anymore/.. 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 forearm and wrist caused by her dog Max a Frisian Bejarano. Dog bite did not break the skin. Patient has obvious contusions to forearm. Patient has pain in range of of wrist and hand. Does have distal sensation. Capillary refill is equal to left hand. Patient is right-hand dominant. Max is up-to-date with his vaccinations. Patient is up-to-date with her vaccinations. No history immunosuppression. No history of travel. No specific ill contacts. Review of Systems: Review of Systems: Constitutional: Denies fever or chills Eyes: Denies change in visual acuity HENT: Denies nasal congestion or sore throat Respiratory: Denies cough or shortness of breath Cardiovascular: Denies chest pain or edema GI: Denies abdominal pain, nausea, vomiting, bloody stools or diarrhea : Denies dysuria Musculoskeletal: Complains of right forearm and wrist pain Integument: Denies rash Neurologic: Denies headache, focal weakness or sensory changes Endocrine: Denies polyuria or polydipsia Lymphatic: Denies swollen glands Psychiatric: Denies depression or anxiety Family History: Family History: Noncontributory to presentation Current Medications: Current Meds: See nursing for home meds Allergies: Allergies: Allergies Coded Allergies Type Severity Reaction Last Updated Verified No Known Drug Allergies 11/15/20 No Physical Exam: PE: Constitutional: Well developed, well nourished, no acute distress, non-toxic appearance. [] HENT: Normocephalic, atraumatic, bilateral external ears normal, oropharynx moist, no oral exudates, nose normal. [] Eyes: PERRLA, EOMI, conjunctiva normal, no discharge. Glasses Neck: Normal range of motion, no tenderness, supple, no stridor. [] Cardiovascular:Heart rate regular rhythm, no murmur [] Lungs & Thorax: Bilateral breath sounds equal apex on auscultation [] Abdomen: Bowel sounds normal, soft, no tenderness, no masses, no pulsatile masses. [] Skin: Warm, dry, no erythema, no rash. Contusion to right forearm and wrist Back: No tenderness, no CVA tenderness. [] Extremities: Right forearm and wrist tenderness, no cyanosis, no clubbing, ROM intact, right forearm and wrist edema. [] Neurologic: Alert and oriented X 3, normal motor function, normal sensory function, no focal deficits noted. [] Psychologic: Affect anxious, judgement normal, mood normal. [] EKG: EKG: [] Radiology/Procedures: Radiology/Procedures: [][place] [address] IMAGING REPORT Signed PATIENT: MORENITA PARSON ACCOUNT: [id number] : 1995 LOCATION: ER AGE: 25 SEX: F EXAM STATUS: DEP ER ORD. PHYSICIAN: DARYL OWENS MD REASON: TRAUMA, DOG BITE 1 DAY AGO, ENTIRE WRIST & ANT FOREARM PAIN PROCEDURE: WRIST 3V RIGHT Right forearm 2 views: Reason for examination: Trauma No acute fractures seen. The bone density is normal. Wrist and elbow joints show no acute abnormalities. IMPRESSION: No acute bony abnormality of the right forearm. Right wrist 3 views: No fracture or dislocation is seen. The bone density is normal. Joint spaces are maintained. No abnormal periosteal reaction is seen. IMPRESSION: No acute abnormality at the right wrist. Electronically signed by: Shelly Flynn MD (12/29/2020 1:45 AM) [facility] DICTATED AND SIGNED BY: SHELLY FLYNN MD DATE: 12/29/20 0143 CC: DARYL OWENS MD; JOHN PUAL BALL ~MTH0 0 Heart Score: C/O Chest Pain: N/A Risk Factors: Risk Factors: DM, Current or recent (<one month) smoker, HTN, HLP, family history of CAD, obesity. Risk Scores: Score 0 - 3: 2.5% MACE over next 6 weeks - Discharge Home Score 4 - 6: 20.3% MACE over next 6 weeks - Admit for Clinical Observation Score 7 - 10: 72.7% MACE over next 6 weeks - Early Invasive Strategies Course & Med Decision Making: Course & Med Decision Making Pertinent Labs and Imaging studies reviewed. (See chart for details) Ice packs as needed. Take Tylenol and ibuprofen for pain. For marked pain may take Vicoprofen. Follow-up primary care. Return if any concerns. Impression: 1. Contusion Rt. forearm and wrist. [] Dragon Disclaimer: Dragon Disclaimer: This electronic medical record was generated, in whole or in part, using a voice recognition dictation system. Departure Departure: Referrals: JOHN PAUL BALL (PCP) Scripts Hydrocodone/Ibuprofen (HYDROCODONE-IBUPROFEN 7.5-200 ) 1 Each Tablet 1 TAB PO PRN Q6HRS PRN for PAIN, #30 TAB 0 Refills Prov: DARYL OWENS MD 12/29/20 Dragon Disclaimer This chart was dictated in whole or in part using Voice Recognition software in a busy, high-work load, and often noisy Emergency Department environment. It may contain unintended and wholly unrecognized errors or omissions. Dragon Disclaimer This chart was dictated in whole or in part using Voice Recognition software in a busy, high-work load, and often noisy Emergency Department environment. It may contain unintended and wholly unrecognized errors or omissions. DARYL OWENS MD Dec 29, 2020 00:39
[2020-12-29] MEDS ORDERED: HYDR-1179 PO (00:44)
[2020-12-29] MEDS ORDERED: IBUPROFEN 600 MG TABLET. PO ONE (01:00)
[2020-12-29 01:35] VITALS: BP 143/78
--- NOTE | 2020-12-29 01:47 | RAD ---
Right forearm 2 views: Reason for examination: Trauma No acute fractures seen. The bone density is normal. Wrist and elbow joints show no acute abnormaliti es. IMPRESSION: No acute bony abnormality of the right forearm. Right wrist 3 views: No fracture or dislocation is seen. The bone density is normal. Joint spaces are maintained. No abnor mal periosteal reaction is seen. IMPRESSION: No acute abnormality at the right wrist. Electronically signed by: Shelly Wright MD (12/29/2020 1:45 AM) [facility]
== END 2020-12-29 01:35 | disposition home or self-care (01) ==
LOC: ER 00:17
DX: S50.11XA Contusion of right forearm, initial encounter (principal); S60.211A Contusion of right wrist, initial encounter; J45.909 Unspecified asthma, uncomplicated; F17.200 Nicotine dependence, unspecified, uncomplicated; Z86.718 Personal history of other venous thrombosis and embolism; X50.9XXA Other and unspecified overexertion or strenuous movements or postures, initial encounter; Y93.89 Activity, other specified; Y92.89 Other specified places as the place of occurrence of the external cause; Y99.8 Other external cause status
CPT/HCPCS: 73090; 73110; 99284

== ENCOUNTER 2021-04-18 01:20 | Emergency (ER) | payer BC ==
[~2021-04-18] VITALS: Ht 165.1 cm; Wt 100.4 kg
--- NOTE | 2021-04-18 01:26 | PHYS DOC ---
Past History Past Medical History: Asthma, DVT Additional Past Medical Histor: tubal Past Surgical History: Tonsillectomy, Other Additional Past Surgical Histo: right leg reconstruction Smoking: Less than 1pk/day Alcohol Use: None Drug Use: None General Adult EDM: Chief Complaint: UPPER EXTREMITY PAIN HPI: HPI: ". I seen [facility]ak[facility] earlier.. they said I had intrapped nerve ..and put me on flexeril and Voltran.. .but it has not helped.. I still got pain in my Lt shoulder and neck... 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 arm pain x 4 days. Patient previously has been following with Shakila for said pain. Patient had been given a course of Ultram and Flexeril which patient states has not relieved her pain. Pain seems to radiate off her neck and down anterior shoulder. Does have point tenderness over her left shoulder blade. There is spasms and left trapezius. No history of trauma. No history of ill contacts. No history of recent travel. Patient does have significant history of asthma and DVTs. Has had repeat surgeries on right knee. Patient does smoke. Patient reportedly off anticoagulation for DVT suppression because no cause of hypercoagulability detected. Pt. follows with Shakila for care. Review of Systems: Review of Systems: Constitutional: Denies fever or chills Eyes: Denies change in visual acuity HENT: Denies nasal congestion or sore throat Respiratory: Denies cough or shortness of breath Cardiovascular: Denies chest pain or edema GI: Denies abdominal pain, nausea, vomiting, bloody stools or diarrhea : Denies dysuria Musculoskeletal: Denies back pain or joint pain Integument: Denies rash Neurologic: Denies headache, focal weakness or sensory changes Endocrine: Denies polyuria or polydipsia Lymphatic: Denies swollen glands Psychiatric: Denies depression or anxiety Family History: Family History: Noncontributory presentation Current Medications: Current Meds: See nursing for home meds Allergies: Allergies: Allergies Coded Allergies Type Severity Reaction Last Updated Verified No Known Drug Allergies 11/15/20 No Physical Exam: PE: Constitutional: Moderate acute distress, non-toxic appearance. [] HENT: Normocephalic, atraumatic, bilateral external ears normal, oropharynx moist, no oral exudates, nose normal. [] Eyes: PERRLA, EOMI, conjunctiva normal, no discharge. Glasses Neck: Normal range of motion, left trapezius tenderness, supple, no stridor. [] Cardiovascular:Heart rate regular rhythm, no murmur [] Lungs & Thorax: Bilateral breath sounds equal apex on auscultation [] Abdomen: Bowel sounds normal, soft, no tenderness, no masses, no pulsatile masses. Obese. Skin: Warm, dry, no erythema, no rash. Tattoos Back: No tenderness, no CVA tenderness. [] Upper trapezius muscle spasm and tenderness on the left. Extremities: No tenderness, no cyanosis, no clubbing, ROM intact, no edema. No cording appreciated. Multiple surgery scars right knee. Neurologic: Alert and oriented X 3, moves extremities on request, has distal sensation, no focal deficits noted. []DTR + 2 brachial . Psychologic: Affect anxious , judgement normal, mood normal. [] EKG: EKG: [] Radiology/Procedures: Radiology/Procedures: [][place] [address] IMAGING REPORT Signed PATIENT: MORENITA PARSON ACCOUNT: [id number] : 1995 LOCATION: ER AGE: 25 SEX: F EXAM STATUS: REG ER ORD. PHYSICIAN: DARYL OWENS MD REASON: Severe Lt neck and shoulder pain PROCEDURE: CT CERVICAL SPINE WO CONTRAST Exam: CT CERVICAL SPINE WO Date: 04/18/2021 1:46 AM Indication: Severe Lt neck and shoulder pain Comparison: None. Technique: CT imaging of the cervical spine was performed without contrast. Coronal and sagittal reformatted images were performed. One or more of the following dose reduction techniques were utilized: Automated exposure control (AEC), Adjustment of mA and/or kV according to patient size, Use of iterative reconstruction technique such as ASiR, CT scan done according to ALARA and image gently/image wisely. Findings: The cervical spine is normally aligned. No acute fracture. No aggressive lytic or blastic osseous lesion. The intervertebral disc heights are maintained. No high-grade spinal canal stenosis or neural foraminal narrowing. The thyroid gland is normal. No cervical lymphadenopathy. The visualized aerodigestive tract is unremarkable. The visualized portions of the lungs are clear. Impression: No acute osseous abnormality of the cervical spine. Electronically signed by: Aida Thomas MD (04/18/2021 2:23 AM) [facility] DICTATED AND SIGNED BY: AIDA THOMAS MD DATE: 04/18/21220 CC: DARYL OWENS MD; JOHN PAUL BALL ~MTH0 0 Heart Score: C/O Chest Pain: N/A Risk Factors: Risk Factors: DM, Current or recent (<one month) smoker, HTN, HLP, family history of CAD, obesity. Risk Scores: Score 0 - 3: 2.5% MACE over next 6 weeks - Discharge Home Score 4 - 6: 20.3% MACE over next 6 weeks - Admit for Clinical Observation Score 7 - 10: 72.7% MACE over next 6 weeks - Early Invasive Strategies Course & Med Decision Making: Course & Med Decision Making Pertinent Labs and Imaging studies reviewed. (See chart for details) Patient continue Voltaren. Take Tylenol and ibuprofen for pain. Use ice packs as needed. Follow-up primary care.. Marked pain take Vicoprofen. Consider physical therapy. If symptoms persist consider MRI or intrathecal contrast evaluation of upper cervical components. Consider massage. Consider trigger point injection or acupuncture Impression: 1. Cervical neuropathy 2. Muscle spasms [] Dragon Disclaimer: Dragon Disclaimer: This electronic medical record was generated, in whole or in part, using a voice recognition dictation system. Departure Departure: Referrals: JOHN PAUL BALL (PCP) Scripts Hydrocodone/Ibuprofen (HYDROCODONE-IBUPROFEN 7.5-200 ) 1 Each Tablet 1 TAB PO PRN Q6HRS PRN for PAIN, #30 TAB 0 Refills Prov: DARYL OWENS MD 04/18/21 Dragon Disclaimer This chart was dictated in whole or in part using Voice Recognition software in a busy, high-work load, and often noisy Emergency Department environment. It may contain unintended and wholly unrecognized errors or omissions. Dragon Disclaimer This chart was dictated in whole or in part using Voice Recognition software in a busy, high-work load, and often noisy Emergency Department environment. It may contain unintended and wholly unrecognized errors or omissions. DARYL OWENS MD 3, 2021 01:26
[2021-04-18] MEDS: KETOROLAC 60 MG/2 ML VIAL. IM ONE (01:52)
[2021-04-18] MEDS: methylPREDNISolone ACETATE 40 MG/ML VIAL. IM ONE (01:52)
--- NOTE | 2021-04-18 02:26 | RAD ---
Exam: CT CERVICAL SPINE WO Date: 04/18/2021 1:46 AM Indication: Severe Lt neck and shoulder pain Comparison: None. Technique: CT imaging of the cervical spine was performed without contrast. Coronal and sagittal ref ormatted images were performed. One or more of the following dose reduction techniques were utilized: Automated exposure control (AEC), Adjustment of mA and/or kV according to patient size, Use of itera tive reconstruction technique such as ASiR, CT scan done according to ALARA and image gently/image wi sely. Findings: The cervical spine is normally aligned. No acute fracture. No aggressive lytic or blastic osseous les ion. The intervertebral disc heights are maintained. No high-grade spinal canal stenosis or neural foramin al narrowing. The thyroid gland is normal. No cervical lymphadenopathy. The visualized aerodigestive tract is unrem arkable. The visualized portions of the lungs are clear. Impression: No acute osseous abnormality of the cervical spine. Electronically signed by: Omar Arciniega MD (04/18/2021 2:23 AM) [facility]
[2021-04-18] MEDS ORDERED: HYDR-1179 PO (02:30)
[2021-04-18 02:40] LABS: BARBITURATES NEG (NEG); BENZODIAZEPINES NEG (NEG); CANNABINOIDS NEG (NEG); COCAINE NEG (NEG); METHADONE NEG (NEG); OPIATES NEG (NEG); PHENCYCLIDINE NEG (NEG)
[2021-04-18 02:43] LABS: BILIRUBIN,URINE NEG (NEG); CLARITY,URINE CLEAR; COLOR,URINE YELLOW; GLUCOSE,URINE NEG (NEG); NITRITE,URINE NEG (NEG); UROBILINOGEN,URINE 0.2 mg/dL (0.2 mg/dL)
[2021-04-18 02:45] VITALS: BP 140/80
[2021-04-18 02:45] LABS: BACTERIA,URINE FEW /HPF (0-FEW); RBC,URINE 0 /HPF (0-2); SQUAMOUS EPITHELIAL CELL,UR OCC /LPF; WBC,URINE OCC /HPF (0-4)
[2021-04-18 02:49] LABS: AMPHETAMINE/METHAMPHETAMINE POS (NEG)
== END 2021-04-18 03:00 | disposition home or self-care (01) ==
LOC: ER 01:20
DX: G62.9 Polyneuropathy, unspecified (principal); M62.838 Other muscle spasm; J45.909 Unspecified asthma, uncomplicated; F17.200 Nicotine dependence, unspecified, uncomplicated
CPT/HCPCS: 36415; 72125; 80307; 81001; 81025; 87086; 96372; 99284; J1030; J1885

== ENCOUNTER → 2021-06-11 | Outpatient (CLI) | payer BC ==
--- NOTE | 2021-06-11 15:23 | RAD ---
EXAM: Abdomen, 2 views. HISTORY: Pain. COMPARISON: None. FINDINGS: Frontal upright and supine views of the abdomen are obtained. There is a small amount of ga s and stool within the colon. There is no evidence of bowel obstruction. There is an intrauterine con traceptive device overlying the pelvis of the right of midline. There is no free air. IMPRESSION: Nonobstructive bowel gas pattern. Electronically signed by: Lani Sargent MD (06/11/2021 3:21 PM) [id number]
== END ==
LOC: RAD 14:50
DX: R10.31 Right lower quadrant pain (principal); Z97.5 Presence of (intrauterine) contraceptive device
CPT/HCPCS: 74019

== ENCOUNTER 2021-07-30 19:13 | Emergency (ER) | payer BC, OTHER ==
[~2021-07-30] VITALS: Ht 165.1 cm; Wt 97.8 kg
[2021-07-30 19:29] VITALS: BP 135/91
[2021-07-30 20:03] LABS: BASO # 0.2 x10^3/uL (0.0-0.2); BASO % 1 % (0-3); EOS # 0.2 x10^3/uL (0.0-0.7); EOS % 2 % (0-3); HEMATOCRIT 45.2 % (36.0-47.0); HEMOGLOBIN 15.2 g/dL (12.0-15.5); LYMPH # 3.7 x10^3/uL (1.0-4.8); LYMPH % 30 % (24-48); MEAN CORPUSCULAR HEMOGLOBIN 31 pg (25-35); MEAN CORPUSCULAR HGB CONC 34 g/dL (31-37); MEAN CORPUSCULAR VOLUME 92 fL (79-100); MONO # 0.6 x10^3/uL (0.0-1.1); MONO % 5 % (0-9); NEUT # 7.7 x10^3uL (1.8-7.7); NEUT % 62 % (31-73); PLATELET COUNT 280 x10^3/uL (140-400); RED BLOOD COUNT 4.92 x10^6/uL (3.50-5.40); WHITE BLOOD COUNT 12.3 x10^3/uL (4.0-11.0)
[2021-07-30 20:25] LABS: CALCIUM 9.2 mg/dL (8.5-10.1); CREATININE 0.7 mg/dL (0.6-1.0); GFR 101.1; POTASSIUM 3.3 mmol/L (3.5-5.1)
--- NOTE | 2021-07-30 21:23 | RAD ---
Right lower extremity venous duplex study 07/30/2021 Clinical History: Right leg pain and swelling. Technique: Using a combination of real time ultrasound imaging and color-flow and pulse Doppler imagi ng techniques along with graded compression and augmentation, duplex evaluation of the deep venous sy stem of the right lower extremity was performed. Multiple images were obtained. Findings: There is no sonographic evidence of deep venous thrombosis involving the visualized deep ve nous structures of the right lower extremity. Impression: Negative study. Electronically signed by: Solitario Bernstein MD (07/30/2021 9:21 PM) [id number]
--- NOTE | 2021-07-30 21:31 | PHYS DOC ---
Past History Past Medical History: Asthma, DVT Additional Past Medical Histor: tubal ; PE from DVT; ADHD and PCOS (SADI BLANTON APRN) Past Surgical History: Tonsillectomy, Other Additional Past Surgical Histo: right leg reconstruction x2 (SADI BLANTON APRN) Smoking: Less than 1pk/day Alcohol Use: None Drug Use: None (SADI BLANTON APRN) Adult General Chief Complaint Chief Complaint: LOWER EXT PAIN HPI HPI Patient is a 26-year-old female who presents to the emergency department complaining of right lower extremity pain consistent with previous DVTs. 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 Patient reports her last DVT was in 2019. Patient denies swelling to her lower extremities, reports a 7 out of 10 pain. States she takes Adderall and Lexapro at home. Denies allergies to medications. Patient reports her last menstrual cycle was 3 years ago when she had her Mirena control placed for PCOS. Patient denies other physical complaints or physical concerns. (SADI BLANTON APRN) Review of Systems Review of Systems 14 body systems of review of systems have been reviewed. See HPI for pertinent positives and negative responses, otherwise all other systems are negative, nonpertinent or noncontributory. Constitutional: Negative except as outlined in HPI above. Skin: Negative except as outlined in HPI above. Eyes: Negative except as outlined in HPI above. HENT: Negative except as outlined in HPI above. Respiratory: Negative except as outlined in HPI above. Cardiovascular: Negative except as outlined in HPI above. GI: Negative except as outlined in HPI above. : Negative except as outlined in HPI above. Musculoskeletal: Negative except as outlined in HPI above. Integument: Negative except as outlined in HPI above. Neurologic: Negative except as outlined in HPI above. Endocrine: Negative except as outlined in HPI above. Lymphatic: Negative except as outlined in HPI above. Psychiatric: Negative except as outlined in HPI above. (SADI BLANTON APRN) Allergies Allergies Allergies Coded Allergies Type Severity Reaction Last Updated Verified No Known Drug Allergies 11/15/20 No (SADI BLANTON APRN) Physical Exam Physical Exam Constitutional: Well developed, well nourished, no acute distress, non-toxic appearance. 26-year-old female in no apparent distress. HENT: Normocephalic, atraumatic. Eyes: Conjunctiva normal, no discharge. Neck: Normal range of motion, no stridor. Cardiovascular: No cyanosis appreciated, distal cap refill less than 2 seconds. Lungs & Thorax: Patient is in no respiratory distress, no audible adventitious lung sounds appreciated. Abdomen: Nontender, no abnormalities noted. Skin: Warm, dry, no erythema, no rash. Back: No tenderness, no deformities. Extremities: No tenderness, no cyanosis, no clubbing, ROM intact, no edema. Soft right lower extremity, old well-healed surgical scars present, full passive range of motion of knee and ankle joint, no edema or swelling appreciated of the right lower extremity, 2+ dorsalis pedis/posterior tibial pulse. Distal cap refill is less than 2 seconds, no loss of sensation. No deformities ap preciated, there is no visual apparent injury appreciated. Neurologic: Alert and oriented X 3, normal motor function, normal sensory function, no focal deficits noted. Psychologic: Affect normal, judgement normal, mood normal. (SADI BLANTON APRN) Current Patient Data Vital Signs Vital Signs Date Time Temp Pulse Resp B/P (MAP) Pulse Ox O2 Delivery O2 Flow Rate FiO2 07/30/21 19:29 111 18 135/91 (106) 96 Lab Results Laboratory Tests Test 07/30/21 19:50 White Blood Count 12.3 x10^3/uL (4.0-11.0) H Red Blood Count 4.92 x10^6/uL (3.50-5.40) Hemoglobin 15.2 g/dL (12.0-15.5) Hematocrit 45.2 % (36.0-47.0) Mean Corpuscular Volume 92 fL (79-100) Mean Corpuscular Hemoglobin 31 pg (25-35) Mean Corpuscular Hemoglobin Concent 34 g/dL (31-37) Red Cell Distribution Width 13.0 % (11.5-14.5) Platelet Count 280 x10^3/uL (140-400) Neutrophils (%) (Auto) 62 % (31-73) Lymphocytes (%) (Auto) 30 % (24-48) Monocytes (%) (Auto) 5 % (0-9) Eosinophils (%) (Auto) 2 % (0-3) Basophils (%) (Auto) 1 % (0-3) Neutrophils # (Auto) 7.7 x10^3uL (1.8-7.7) Lymphocytes # (Auto) 3.7 x10^3/uL (1.0-4.8) Monocytes # (Auto) 0.6 x10^3/uL (0.0-1.1) Eosinophils # (Auto) 0.2 x10^3/uL (0.0-0.7) Basophils # (Auto) 0.2 x10^3/uL (0.0-0.2) Sodium Level 138 mmol/L (136-145) Potassium Level 3.3 mmol/L (3.5-5.1) L Chloride Level 103 mmol/L (98-107) Carbon Dioxide Level 24 mmol/L (21-32) Anion Gap 11 (6-14) Blood Urea Nitrogen 11 mg/dL (7-20) Creatinine 0.7 mg/dL (0.6-1.0) Estimated GFR (Cockcroft-Gault) 101.1 Glucose Level 110 mg/dL (70-99) H Calcium Level 9.2 mg/dL (8.5-10.1) (SADI BLANTON APRN) EKG EKG [] (SADI BLANTON APRN) Radiology/Procedures Radiology/Procedures PATIENT: MORENITA PARSON ACCOUNT: [id number] : 1995 LOCATION: ER AGE: 26 SEX: F EXAM STATUS: REG ER ORD. PHYSICIAN: SADI BLANTON APRN REASON: DVT study PROCEDURE: VENOUS LOWER EXTREMITY RIGHT Right lower extremity venous duplex study 07/30/2021 Clinical History: Right leg pain and swelling. Technique: Using a combination of real time ultrasound imaging and color-flow and pulse Doppler imaging techniques along with graded compression and augmentation, duplex evaluation of the deep venous system of the right lower extremity was performed. Multiple images were obtained. Findings: There is no sonographic evidence of deep venous thrombosis involving the visualized deep venous structures of the right lower extremity. Impression: Negative study. Electronically signed by: Solitario Bernstein MD (07/30/2021 9:21 PM) [id number] (SADI BLANTON APRN) Heart Score C/O Chest Pain: No Risk Factors: Risk Factors: DM, Current or recent (<one month) smoker, HTN, HLP, family history of CAD, obesity. Risk Scores: Risk Factors: DM, Current or recent (<one month) smoker, HTN, HLP, family history of CAD, obesity. (SADI BLANTON APRN) Course & Med Decision Making Course & Med Decision Making Pertinent Labs and Imaging studies reviewed. (See chart for details) 26-year-old female, vital signs reviewed, presents emergency department concerning right lower extremity pain consistent with previous DVTs. Patient's physical presentation unlikely for DVT however with history of 11 DVTs in the past will order sono study to rule out DVT. Offered patient pain medication, patient refused. Ultrasound DVT study negative for DVT. Discussed findings with patient, patient is relieved stating that she will treat pain at home. Discussed follow-up with primary care return to ER precautions or concerns. Patient is amenable to ED discharge planning. Discussed with the patient all findings and diagnostic testing as well as the need to follow-up with their primary care provider for further evaluation and treatment or return to the ED if any new or worsening symptoms. Strict return precautions were also discussed at length, the patient voiced understanding and agreement with the discharge planning. The patient was nontoxic in appearance, in no apparent distress, and hemodynamically stable at the time of disposition. (SADI BLANTON APRN) Course & Med Decision Making Patient seen by midlevel provider and I was available for supervision. Patient had presented with possibility of DVT but ultrasound study is negative. Proper precautions and instructions have been provided and patient discharged home. (MAHAD TORRES MD) Dragon Disclaimer Dragon Disclaimer This electronic medical record was generated, in whole or in part, using a voice recognition dictation system. (SADI BLANTON APRN) Departure Departure: Impression: Primary Impression: Right leg pain Disposition: HOME / SELF CARE / HOMELESS Condition: GOOD Referrals: JOHN PAUL BALL (PCP) Additional Instructions: You were seen today for pain of the right leg. You have an extensive history of lower extremity DVT, a sonogram was performed today, there was no evidence of DVT on the sonogram study. Please continue to use ibuprofen or Motrin for ongoing right leg pains. Return to the emergency department for worsening symptoms or other concerns. Please keep your follow-up appointments with Enrike Ball. Thank you for visiting our Emergency Department. It was a pleasure taking care of you today in the emergency department and we appreciate you trusting us with your care. If any additional problems come up don't hesitate to return to visit us. Please follow up with your primary care provider so they can plan additional care if needed and know about the problem that you had. If symptoms worsen come back to the Emergency Department. Any concerning symptoms that start such as chest pain, shortness of air, weakness or numbness on one side of the body, running high fevers or any other concerning symptoms return to the ER. EMERGENCY DEPARTMENT GENERAL DISCHARGE INSTRUCTIONS Thank you for coming to [facility] (ED) today and trusting us with you care. We trust that you had a positivie experience in our Emergency Department. If you wish to speak to the department management, you may call the director at [phone]. YOUR FOLLOW UP INSTRUCTIONS ARE FOLLOWS: 1. Do you have a private Doctor? If you do not have a private doctor, please ask for a resource list of physicians or clinics that may be able to assist you with follow up care. 2. The Emergency Physician has interpreted your x-rays. The X-Ray specialist will also review them. If there is a change in the findings, you will be notified in 48 hours when at all possible. 3. A lab test or culture has been done, your results will be reviewed and you will be notified if you need a change in treatment. ADDITIONAL INSTRUCTIONS AND INFORMATION: 1. Your care today has been supervised by a physician who is specially trained in emergency care. Many problems require more than one evaluation for a complete diagnosis and treatment. We recommend that you schedule your follow up appointment as recommended to ensure complete treatment of you illness or injury. If you are unable to obtain follow up care and continue to have a problem, or if your condition worsens, we recommend that you return to the ED. 2. We are not able to safely determine your condition over the phone nor are we able to give sound medical advice over the phone. For these safety reasons, if you call for medical advice we will ask you to come to the ED for further evaluation. 3. If you have any questions regarding these discharge instructions please call the ED at [phone]. SAFETY INFORMATION: In the interest of safety, wellness, and injury prevention; we encourage you to wear your sealbelt, if you smoke; quite smoking, and we encourage family to use a protective helmet for bicycling and other sporting events that present an increased risk for head injury. IF YOUR SYMPTOMS WORSEN OR NEW SYMPTOMS DEVELOP, OR YOU HAVE CONCERNS ABOUT YOUR CONDITION; OR IF YOUR CONDITION WORSENS WHILE YOU ARE WAITING FOR YOUR FOLLOW UP APPOINTMENT; EITHER CONTACT YOUR PRIMARY CARE DOCTOR, THE PHYSICIAN WHOSE NAME AND NUMBER YOU WERE GIVEN, OR RETURN TO THE ED IMMEDIATELY. SADI BLANTON APRN Jul 30, 2021 21:31 MAHAD TORRES MD Jul 31, 2021 02:09
== END 2021-07-30 21:43 | disposition home or self-care (01) ==
LOC: ER 19:13
DX: M79.604 Pain in right leg (principal); J45.909 Unspecified asthma, uncomplicated; F17.200 Nicotine dependence, unspecified, uncomplicated
CPT/HCPCS: 36415; 80048; 85025; 93971; 99284-25

== ENCOUNTER → 2021-09-29 | Outpatient (CLI) | payer OTHER ==
[~2021-09-29] MED LIST changes: -CYCL-331 PO; +CYCL10TA19 PO; +MECL-75 PO; +ONDA4TAB12 PO
--- NOTE | 2021-09-29 15:34 | RAD ---
Site ID: [id number] EXAMINATION: XR ABDOMEN 1V. HISTORY: 26 years Female Reason: ABDOMEN PAIN, NAUSEA X 4 DAYS COMPARISON: None. FINDINGS: Intrauterine contraceptive device is seen in the pelvis. Other from foreign bodies at the level of th e umbilicus and in the right inguinal region are probably external to the patient. No dilated bowel loops to suggest obstruction. No urinary tract stones identified. No soft tissue mas s or organomegaly detected. IMPRESSION: No dilated bowel loops to suggest obstruction. Electronically signed by: Pankaj Quiroz MD (09/29/2021 3:32 PM) [id number]
== END ==
LOC: PMG 15:13
PROVIDERS: ATTEND Nurse Practitioner Family
DX: R10.84 Generalized abdominal pain (principal); R11.0 Nausea; Z97.5 Presence of (intrauterine) contraceptive device
CPT/HCPCS: 74018

== ENCOUNTER 2021-10-01 08:06 | Emergency (ER) | payer OTHER ==
[~2021-10-01] VITALS: Ht 165.1 cm; Wt 97.8 kg
[~2021-10-01 08:06] MED LIST changes: -MECL-75 PO; -ONDA4TAB12 PO
[2021-10-01 08:32] VITALS: BP 132/97
[2021-10-01] MEDS ORDERED: IV NORMAL SALINE 1,000ML 1,000 ML IV ONE (08:45)
[2021-10-01] MEDS ORDERED: DEXAMETHASONE SOD PHOS 10 MG/ML VIAL. IVP ONE (08:45)
[2021-10-01] MEDS ORDERED: MECLIZINE 12.5 MG TABLET. PO ONE (09:00)
--- NOTE | 2021-10-01 09:05 | PHYS DOC ---
Past History Past Medical History: Anxiety, Asthma, Depression, DVT Additional Past Medical Histor: tubal ; PE from DVT; ADHD and PCOS Past Surgical History: Tonsillectomy, Other Additional Past Surgical Histo: right leg reconstruction x2 Smoking: Less than 1pk/day Alcohol Use: Occasionally Drug Use: None General Adult EDM: Chief Complaint: DIZZY/LIGHT HEADED HPI: HPI: Patient is a 26 year old female who presents for dizziness and headaches for the past 5 days. The dizziness comes on when she moves her head or changes positions quickly. She denies any neck pain or stiffness. She also notes some blurry vision with her dizziness episodes. Pt also notes consistent anxiety for the past five days which is normally controlled with her Lexapro. She denies any ear pain but states she has had multiple "ear problems" in the past year, she states none of which were infections. She is sexually active using Mirena for contraception. She otherwise has no complaints at this time. Review of Systems: Review of Systems: Constitutional: Denies fever or chills Eyes: Positive for blurry vision, Denies redness or eye pain HENT: Positive for nasal congestion, denies sore throat, ear pain Respiratory: Denies cough or shortness of breath Cardiovascular: Denies chest pain or palpitations GI: Denies abdominal pain, nausea, or vomiting : Denies dysuria or hematuria Musculoskeletal: Positive for neck pain, denies neck stiffness Integument: Denies any erythema or rashes Neurologic: Positive for headaches and dizziness, denies focal weakness or sensory changes Complete systems were reviewed and found to be within normal limits, except as documented in this note. Current Medications: Current Meds: Current Medications Medications (Trade) Dose Ordered Sig/Shawn Start Time Stop Time Status Last Admin Dose Admin Dexamethasone Sodium Phosphate (Decadron) 10 mg 1X ONCE 10/01/21 08:45 10/01/21 08:46 UNV Sodium Chloride 1,000 ml @ 1,000 mls/hr 1X ONCE 10/01/21 08:45 10/01/21 09:44 Allergies: Allergies: Allergies Coded Allergies Type Severity Reaction Last Updated Verified No Known Drug Allergies 11/15/20 No Physical Exam: PE: Constitutional: Well developed, well nourished, no acute distress, non-toxic a ppearance HENT: Normocephalic, atraumatic, fluid behind bilateral TMs Eyes: PERRL, horizontal nystagmus in looking left, conjunctiva normal, no discharge Neck: Normal range of motion, no tenderness, supple Lungs & Thorax: No respiratory distress, equal chest rise and fall Skin: Warm, dry Extremities: No tenderness, no edema Neurologic: Alert and oriented X 3, no focal deficits noted Psychologic: Affect normal, judgment normal Current Patient Data: Vital Signs: Vital Signs Date Time Temp Pulse Resp B/P (MAP) Pulse Ox O2 Delivery O2 Flow Rate FiO2 10/01/21 08:32 97.7 86 18 132/97 (109) 98 Room Air EKG: EKG: @0854: sinus rhythm 65BPM, nonspecific T wave inversions lead III, [place] 118, QRS 72, QT/QTc 412/429. [] Radiology/Procedures: Radiology/Procedures: [] Heart Score: C/O Chest Pain: N/A Course & Med Decision Making: Course & Med Decision Making Pertinent Labs and Imaging studies reviewed. (See chart for details) Patient presented with headache, dizziness, and blurry vision with positional changes for the past 5 days. EKG obtained to rule out arrhythmia which was negative. test was obtained. Electrolytes WNL. HPI and physical exam concerning for vertigo. Patient given fluids, dexamethasone, and Meclizine for symptoms. Urinalysis concerning for infection vs contamination. Discussed with patient who states she is not having any dysuria, hematuria, or frequency. Plan to hold empiric antibiotics until results of urine culture. Patient stable for discharge with outpatient follow-up with PCP. Discussed findings and plan with patient, who acknowledges understanding and agreement. [] Claudia Disclaimer: Claudia Disclaimer: This electronic medical record was generated, in whole or in part, using a voice recognition dictation system. Departure Departure: Impression: Primary Impression: Vertigo Disposition: HOME / SELF CARE / HOMELESS Condition: IMPROVED Referrals: PRATIBHA ESPARZA APRN (PCP) Patient Instructions: Vertigo, [id number] Additional Instructions: Call Dr. Ricardo Field ENT for further evaluation and treatment. Address: [address] [place] [address] [address], [place] [address] Scripts Ondansetron (ONDANSETRON ODT) 4 Mg Tab.rapdis 1 TAB PO PRN Q6-8HRS PRN for NAUSEA, #16 TAB Prov: DE LA ROSA,SADI R DO 10/01/21 Meclizine Hcl (MECLIZINE HCL) 25 Mg Tablet 1 TAB PO PRN TID PRN for DIZZINESS, #14 TAB Prov: SADI DE LA ROSA DO 10/01/21 SADI DE LA ROSA DO Oct 01, 2021 09:05
[2021-10-01 09:53] LABS: BASO # 0.1 x10^3/uL (0.0-0.2); BASO % 1 % (0-3); EOS # 0.2 x10^3/uL (0.0-0.7); EOS % 2 % (0-3); HEMATOCRIT 44.7 % (36.0-47.0); HEMOGLOBIN 15.3 g/dL (12.0-15.5); LYMPH # 2.2 x10^3/uL (1.0-4.8); LYMPH % 26 % (24-48); MEAN CORPUSCULAR HEMOGLOBIN 31 pg (25-35); MEAN CORPUSCULAR HGB CONC 34 g/dL (31-37); MEAN CORPUSCULAR VOLUME 92 fL (79-100); MONO # 0.5 x10^3/uL (0.0-1.1); MONO % 6 % (0-9); NEUT # 5.5 x10^3uL (1.8-7.7); NEUT % 65 % (31-73); PLATELET COUNT 265 x10^3/uL (140-400); RED BLOOD COUNT 4.88 x10^6/uL (3.50-5.40); RED CELL DISTRIBUTION WIDTH 12.9 % (11.5-14.5); WHITE BLOOD COUNT 8.5 x10^3/uL (4.0-11.0)
[2021-10-01 09:57] LABS: CALCIUM 8.9 mg/dL (8.5-10.1); CREATININE 0.9 mg/dL (0.6-1.0); GFR 75.7; POTASSIUM 3.8 mmol/L (3.5-5.1)
[2021-10-01 10:07] LABS: ALBUMIN 3.6 g/dL (3.4-5.0); MAGNESIUM 2.1 mg/dL (1.8-2.4); TOTAL BILIRUBIN 0.4 mg/dL (0.2-1.0); TOTAL PROTEIN 7.1 g/dL (6.4-8.2)
[2021-10-01 11:25] LABS: BACTERIA,URINE FEW /HPF (0-FEW); BILIRUBIN,URINE NEG (NEG); CLARITY,URINE CLOUDY; COLOR,URINE YELLOW; GLUCOSE,URINE NEG (NEG); NITRITE,URINE NEG (NEG); RBC,URINE OCC /HPF (0-2); SQUAMOUS EPITHELIAL CELL,UR MANY /LPF; UROBILINOGEN,URINE 0.2 mg/dL (0.2 mg/dL); WBC,URINE 20-40 /HPF (0-4)
[2021-10-01] MEDS ORDERED: ONDA4TAB12 PO (11:32)
[2021-10-01] MEDS ORDERED: MECL-75 PO (11:32)
[2021-10-01 14:00] LABS: U PREG PATIENT NEGATIVE (NEG)
--- NOTE | 2021-10-01 21:02 | EKG ---
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
== END 2021-10-01 11:38 | disposition home or self-care (01) ==
LOC: ER 08:06
DX: R42 Dizziness and giddiness (principal); R51.9 Headache, unspecified; J45.909 Unspecified asthma, uncomplicated; F17.200 Nicotine dependence, unspecified, uncomplicated
CPT/HCPCS: 36415; 80053; 81001; 81025; 83735; 85025; 87086; 93005; 96361; 96374; 99284; J1100; J7030

== ENCOUNTER 2022-01-26 23:01 | Emergency (ER) | payer OTHER ==
[~2022-01-26] VITALS: Ht 165.1 cm; Wt 97.8 kg
[~2022-01-26 23:01] MED LIST changes: +MECL-75 PO; +ONDA4TAB12 PO
[2022-01-26 23:20] VITALS: BP 143/87
--- NOTE | 2022-01-26 23:42 | RAD ---
EXAM: 3 views right foot 3 views right ankle DATE: 01/26/2022 11:28 PM INDICATION: Reason: Right ankle/foot persistent pain and swelling, fall 3 days ago / Spl. Instruction s: / History: . COMPARISON: 09/17/2013. FINDINGS: No evidence of acute fracture or dislocation. Ankle mortise is congruent. Talar dome is intact. Mild forefoot soft tissue swelling. IMPRESSION: No evidence of acute fracture or dislocation. Electronically signed by: Pedro Han MD (01/26/2022 11:40 PM) QUIANA
--- NOTE | 2022-01-27 00:09 | PHYS DOC ---
Past History Past Medical History: Anxiety, Asthma, Depression, DVT Additional Past Medical Histor: tubal ; PE from DVT; ADHD and PCOS Past Surgical History: Tonsillectomy, Other Additional Past Surgical Histo: right leg reconstruction x2 Smoking: Cigarettes, Less than 1pk/day Alcohol Use: Occasionally Drug Use: None General Adult EDM: Chief Complaint: FOOT INJURY PAIN HPI: HPI: ".. I twisted it 3 days... ago.. but it is still swollen and painful..." Patient is a 26 year old FEMALE who presents with above hx and complaints of Rt. foot and ankle pain after inversion injury 3 days ago. Patient has been amatory with pain. Right ankle and foot is swollen and does have ecchymosis. There is no upper leg tenderness. Distal neurovascular and pulses are equal to left foot. There is some laxity on inversion and anterior draw. There is positive painful foot squeeze. Achilles tendons nontender is able to flex and dorsiflex. No other injury and fall. Patient denies any recent travel. No sick ill contacts. Normally healthy. No history of immunosuppression. Patient has past medical history of anxiety, asthma, depression, tubal , pulmonary embolism from DVT, ADHD, PCOS, bronchitis, tobacco use. Patient normally follows with [facility] for [facility]. Patient recently seen in [facility]. Review of Systems: Review of Systems: Constitutional: Denies fever or chills Eyes: Denies change in visual acuity HENT: Denies nasal congestion or sore throat Respiratory: Denies cough or shortness of breath Cardiovascular: Denies chest pain or edema GI: Denies abdominal pain, nausea, vomiting, bloody stools or diarrhea : Denies dysuria Musculoskeletal: Complains of right foot and ankle pain after twisting mechanism and fall Integument: Denies rash Neurologic: Denies headache, focal weakness or sensory changes Endocrine: Denies polyuria or polydipsia Lymphatic: Denies swollen glands Psychiatric: Denies depression or anxiety Family History: Family History: Noncontributory the presentation Current Medications: Current Meds: See nursing for home meds Allergies: Allergies: Allergies Coded Allergies Type Severity Reaction Last Updated Verified No Known Drug Allergies 11/15/20 No Physical Exam: PE: Constitutional: Moderate acute distress, non-toxic appearance. [] HENT: Normocephalic, atraumatic, bilateral external ears normal, oropharynx moist, no oral exudates, nose normal. [] Eyes: PERRLA, EOMI, conjunctiva normal, no discharge. [] Neck: Normal range of motion, no tenderness, supple, no stridor. [] Cardiovascular:Heart rate regular rhythm, no murmur [] Lungs & Thorax: Bilateral breath sounds equal at apex auscultation. Few scattered wheezes. Abdomen: Bowel sounds normal, soft, no tenderness, no masses, no pulsatile masses. Old surgery scar Skin: Warm, dry, no erythema, no rash. [] Back: No tenderness, no CVA tenderness. [] Extremities: No tenderness, no cyanosis, no clubbing, ROM intact, no edema. Except findings and right foot and ankle as per HPI. No cording appreciated in legs. Neurologic: Alert and oriented X 3, normal motor function, normal sensory function, no focal deficits noted. [] Psychologic: Affect anxious, judgement normal, mood normal. [] Current Patient Data: Vital Signs: Vital Signs Date Time Temp Pulse Resp B/P (MAP) Pulse Ox O2 Delivery O2 Flow Rate FiO2 01/26/22 23:20 111 18 143/87 (105) 98 Room Air 01/26/22 23:20 97.7 EKG: EKG: [] Radiology/Procedures: Radiology/Procedures: [][place] [address] IMAGING REPORT Signed PATIENT: MORENITA PARSON ACCOUNT: [id number] : 1995 LOCATION: ER AGE: 26 SEX: F EXAM STATUS: REG ER ORD. PHYSICIAN: DARYL OWENS MD REASON: Right ankle/foot persistent pain and swelling, fall 3 days ago PROCEDURE: FOOT RIGHT 3V EXAM: 3 views right foot 3 views right ankle DATE: 01/26/2022 11:28 PM INDICATION: Reason: Right ankle/foot persistent pain and swelling, fall 3 days ago / Spl. Instructions: / History: . COMPARISON: 09/17/2013. FINDINGS: No evidence of acute fracture or dislocation. Ankle mortise is congruent. Talar dome is intact. Mild forefoot soft tissue swelling. IMPRESSION: No evidence of acute fracture or dislocation. Electronically signed by: Pedro Morton MD (01/26/2022 11:40 PM) [facility] DICTATED AND SIGNED BY: PEDRO MORTON MD DATE: 01/26/222337 CC: DARYL OWENS MD; EMERGENCY,DEPARTMENT; JOHN PAUL BALL ~ Heart Score: C/O Chest Pain: N/A Risk Factors: Risk Factors: DM, Current or recent (<one month) smoker, HTN, HLP, family history of CAD, obesity. Risk Scores: Score 0 - 3: 2.5% MACE over next 6 weeks - Discharge Home Score 4 - 6: 20.3% MACE over next 6 weeks - Admit for Clinical Observation Score 7 - 10: 72.7% MACE over next 6 weeks - Early Invasive Strategies Course & Med Decision Making: Course & Med Decision Making Pertinent Labs and Imaging studies reviewed. (See chart for details) Ice, elevation, take Tylenol and ibuprofen for pain. Wear splint. Rest. Follow-up primary care. Consider repeat x-ray in 2 weeks if no improvement. Must be active to prevent recurrent DVT advised patient trauma increase the risk of recurrent DVT. Patient encouraged to stop smoking. Follow-up with Shakila have him review ED record. Consider follow-up with [facility] Ortho. Impression: 1. Sprain/ Strain right ankle and foot. [] Claudia Disclaimer: Claudia Disclaimer: This electronic medical record was generated, in whole or in part, using a voice recognition dictation system. Departure Departure: Referrals: JOHN PAUL BALL (PCP) DARYL OWENS MD Jan 27, 2022 00:09
== END 2022-01-27 01:19 | disposition home or self-care (01) ==
LOC: ER 23:01
DX: S93.401A Sprain of unspecified ligament of right ankle, initial encounter (principal); S93.601A Unspecified sprain of right foot, initial encounter; F41.9 Anxiety disorder, unspecified; J45.909 Unspecified asthma, uncomplicated; F17.210 Nicotine dependence, cigarettes, uncomplicated; Z86.718 Personal history of other venous thrombosis and embolism; Z86.711 Personal history of pulmonary embolism; X50.9XXA Other and unspecified overexertion or strenuous movements or postures, initial encounter; Y93.89 Activity, other specified; Y92.89 Other specified places as the place of occurrence of the external cause; Y99.8 Other external cause status
CPT/HCPCS: 73610; 73630; 99284